=== PATIENT | female | born 1960 | race Caucasian/White ===

== ENCOUNTER 2017-11-26 08:46 | Emergency (ER) | payer BC, SELFPAY ==
[2017-11-26 09:11] VITALS: BP 127/85; PULSE 67; RESP 20; TEMP 37; O2SAT 98; BMI 26.6
--- NOTE | 2017-11-26 09:17 | HMH.EDUTC ---
[facility] [place] Disposition Clinical Impression: Upper respiratory infection Qualifiers: URI type: unspecified URI Qualified Code(s): J06.9 - Acute upper respiratory infection, unspecified Disposition: Home, Self-Care Condition on Discharge: Good Instructions: Sore Throat, Sinus Headache, DI for Sinus Headache, DI for Fever (Symptom) -- Adult Additional Instructions: * Monitor Temp. Tylenol and/or Ibuprofen as needed. ER if fever is no less than 101 despite alternating Tylenol and Ibuprofen * Encourage fluids, water, Gatorade, powerade, pedialyte if infant/toddler/or child * Warm salt water gargles for throat irritation *Warm fluids *Sore throat lozenges *Sleep elevated *humidifier or vaporizer Lots of rest Increase fluids, water, Gatorade, powerade Your throat swab was sent to lab for culture. Those results area typically sent to your primary care physician. Be sure to follow up in 2-3 days if no improvement so they can review those results and treat if necessary If you dont have primary care I recommend you get one, but in the mean time you will have to return to a walk in clinic Follow up IMMEDIATELY for new or worsening of symptoms OR no noticeable improvement over the next 48-72 hours. 911 immediately for any life threatening symptoms such as chest pain or difficulty breathing Prescriptions: Azithromycin [Z-Chaz 250mg Tab] 250 mg PO UD DOSE PK #6 tab predniSONE [Prednisone 20mg Tab] 20 mg PO BID #10 tab Promethazine/Dextromethorphan [Promethazine-Dm Syrup] 5 ml PO Q4H PRN #200 syrup PRN Reason: Cough Referrals: Abebe Siegel MD [Primary Care Provider] - Time of Disposition: 09:26 Medical Decision Making - Medical Records Medical records reviewed: Yes: I reviewed the patient's medical records. Vital Signs: 11/26/17 09:11 Temperature 98.6 F Temperature Source Temporal Artery Scan Pulse Rate [Right Brachial] 67 Respiratory Rate 20 Blood Pressure [Right Arm] 127/85 Blood Pressure Mean [Right Arm] 99 Blood Pressure Source [Right Arm] Automatic Cuff Blood Pressure Position [Right Arm] Sitting 02 Sat by Pulse Oximetry 98 Oxygen Delivery Method Room Air - Rush Inquiry Pt receiving controlled substance: No Rush was queried for this patient: No [facility] [place] HPI - General Stated complaint: Fever, coughing Mode of Arrival: Ambulatory Source of Information: Patient Limitations: No Limitations Description of Symptoms (Recalled from Triage Doc. 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 this week and she wanted to make sure she didn't have flu or strep - Related Data Previous Rx's Medication Instructions Recorded Azithromycin [Z-Chaz 250mg Tab] 250 mg PO UD DOSE PK #6 tab 11/26/17 Promethazine/Dextromethorphan 5 ml PO Q4H PRN #200 syrup 11/26/17 [Promethazine-Dm Syrup] predniSONE [Prednisone 20mg 20 mg PO BID #10 tab 11/26/17 Tab] Allergies Allergy/AdvReac Type Severity Reaction Status Date / Time No Known Allergies Allergy Verified 11/26/17 09:18 - Worker's Comp Is this a Worker's Comp case?: No [facility] History I have reviewed the patient's past medical history: Yes Medical History: Denies:: Cancer, Diabetes Mellitus Type 1, Diabetes Mellitus Type 2, MRSA Laterality Cases: Bilateral: Tonsillectomy Amputation: No Fractures: No - *Social History Smoking Status: Never smoker Alcohol Intake: never - Psychiatric History Expresses thoughts of harming
--- NOTE | 2017-11-26 09:20 | ED_ITS ---
[facility] [place] Dis[place] Clinical Impression: Upper respiratory infection Qualifiers: URI type: unspecified URI Qualified Code(s): J06.9 - Acute upper respiratory infection, unspecified Disposition: Home, Self-Care Condition on Discharge: Good Instructions: Sore Throat, Sinus Headache, DI for Sinus Headache, DI for Fever (Symptom) -- Adult Additional Instructions: * Monitor Temp. Tylenol and/or Ibuprofen as needed. ER if fever is no less than 101 despite alternating Tylenol and Ibuprofen * Encourage fluids, water, Gatorade, powerade, pedialyte if infant/toddler/or child * Warm salt water gargles for throat irritation *Warm fluids *Sore throat lozenges *Sleep elevated *humidifier or vaporizer Lots of rest Increase fluids, water, Gatorade, powerade Your throat swab was sent to lab for culture. Those results area typically sent to your primary care physician. Be sure to follow up in 2-3 days if no improvement so they can review those results and treat if necessary If you don? t have primary care I recommend you get one, but in the mean time you will have to return to a walk in clinic Follow up IMMEDIATELY for new or worsening of symptoms OR no noticeable improvement over the next 48-72 hours. 911 immediately for any life threatening symptoms such as chest pain or difficulty breathing Prescriptions: Azithromycin [Z-Chaz 250mg Tab] 250 mg PO UD DOSE PK #6 tab predniSONE [Prednisone 20mg Tab] 20 mg PO BID #10 tab Promethazine/Dextromethorphan [Promethazine-Dm Syrup] 5 ml PO Q4H PRN #200 syrup PRN Reason: Cough Referrals: Abbee Siegel MD [Primary Care Provider] - Time of Disposition: 09:26 Medical Decision Making - Medical Records Medical records reviewed: Yes: I reviewed the patient's medical records. Vital Signs: 11/26/17 09:11 Temperature 98.6 F Temperature Source Temporal Artery Scan Pulse Rate [Right Brachial] 67 Respiratory Rate 20 Blood Pressure [Right Arm] 127/85 Blood Pressure Mean [Right Arm] 99 Blood Pressure Source [Right Arm] Automatic Cuff Blood Pressure Position [Right Arm] Sitting 02 Sat by Pulse Oximetry 98 Oxygen Delivery Method Room Air - Rush Inquiry Pt receiving controlled substance: No Rush was queried for this patient: No [facility] [place] HPI - General Stated complaint: Fever, coughing Mode of Arrival: Ambulatory Source of Information: Patient Limitations: No Limitations Description of Symptoms (Recalled from Triage Doc. 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
[2017-11-26 09:33] LABS: UTC Influenza A Antigen Negative (Negative); UTC Influenza B Antigen Negative (Negative); UTC Strep Screen (Rapid) Negative (Negative)
[2017-11-26 09:40] VITALS: BP 127/85; PULSE 67; RESP 20; TEMP 37; O2SAT 98
== END 2017-11-26 09:42 | disposition home or self-care (01) ==
PROVIDERS: Emergency Provider Nurse Practitioner; Family Provider Family Medicine; PCP Family Medicine
DX: J06.9 Acute upper respiratory infection, unspecified (principal)
CPT/HCPCS: 87804; 87880; 99201

== ENCOUNTER → 2017-12-11 17:12 | Outpatient (CLI) | payer BC, SELFPAY ==
--- NOTE | 2017-12-11 17:24 | MM_ITS ---
MM Dig screening mamm BI w/CAD CAD Screening COMPARISON: Digital mammograms 11/17/2016 and 11/16/2015 INDICATION: There is no personal or family history of breast cancer TECHNIQUE: Standard CC and MLO images were obtained. R2 CAD reviewed. FINDINGS: The breasts are composed primarily of fat with minimal scattered fibroglandular densities in the central portions of each breast. There is a stable small asymmetric density central portion right breast. There is no suspicious lesion and no suspicious microcalcifications. IMPRESSION: Fibrofatty parenchyma with no suspicious lesion seen BI-RADS Category: 2 Benign Finding(s) RECOMMENDED FOLLOW-UP: 1YR - 1 YEAR FOLLOW-UP (A letter has been sent to the patient regarding results of the study.)
== END ==
PROVIDERS: Family Provider Family Medicine; PCP Family Medicine; Visit Provider Obstetrics & Gynecology Gynecology
DX: Z12.31 Encounter for screening mammogram for malignant neoplasm of breast (principal)
CPT/HCPCS: 77067

== ENCOUNTER 2018-04-16 09:45 | Outpatient (CLI) | payer BC, SELFPAY ==
[2018-04-16 09:54] VITALS: BMI 28.6
[2018-04-16 10:29] LABS: Albumin Level 3.9 gm/dL (3.4-5.0); Calcium 8.6 mg/dL (8.5-10.1); Creatinine Clearance Estimated 110 mL/min (0-300); Creatinine,Serum 0.67 mg/dL (0.55-1.02); Estimated Glomerular Filt Rate 90 ml/min (>60); GFR (African American) 109 ML/MIN (>60)
[2018-04-16 10:41] VITALS: BP 101/57; PULSE 52; RESP 18; TEMP 36.6; O2SAT 97
[2018-04-16 11:10] VITALS: BP 109/54; PULSE 58; RESP 18; O2SAT 97
== END 2018-04-16 11:10 | disposition home or self-care (01) ==
LOC: INF 09:50
PROVIDERS: Family Provider Family Medicine; PCP Family Medicine; Visit Provider Family Medicine
DX: M81.0 Age-related osteoporosis without current pathological fracture (principal)
CPT/HCPCS: 82040; 82310; 82565; 96365; J3489

== ENCOUNTER → 2018-06-28 14:04 | Outpatient (CLI) | payer BC, SELFPAY ==
--- NOTE | 2018-06-28 14:09 | XR_ITS ---
XR foot RT min 3V HISTORY: ITS.REASON: RT FOOT PAIN ORDERING PHYSICIAN: Abebe Siegel MD PATIENT AGE: 58 years COMPARISON: 09/26/2016 FINDINGS: Osteoarthritic changes are present at the first metatarsophalangeal joint with prominent bony spurring along the lateral dorsal aspect of the distal aspect of the fifth metatarsal. There is a healed fracture of the proximal phalanx of the second toe. Mild osteoarthritic changes are present at the first metatarsal tarsal junction. There is a nondisplaced oblique fracture involving the proximal phalanx of the third toe. IMPRESSION: 1. Nondisplaced oblique fracture proximal phalanx third toe. 2. Osteoarthritis
== END ==
PROVIDERS: PCP Family Medicine; Visit Provider Family Medicine
DX: M79.671 Pain in right foot (principal)
CPT/HCPCS: 73630

== ENCOUNTER → 2018-12-19 15:53 | Outpatient (CLI) | payer BC, SELFPAY ==
--- NOTE | 2018-12-19 16:00 | MM_ITS ---
MM Dig screening mamm BI w/CAD CAD Screening COMPARISON: Digital mammograms with CAD 11/17/2016 and additional views left breast 11/30/2016 and digital mammograms with CAD 12/11/2017 INDICATION: There is no personal or family history of breast cancer TECHNIQUE: Standard CC and MLO images were obtained. R2 CAD reviewed. FINDINGS: Diffuse fibroglandular densities are seen throughout both breast. There are 2 small nodular densities right breast. There are both likely stable however one in the nodular densities has shown a possible slight increase in size from the previous exams recommend the patient return for spot compression views and ultrasound for additional evaluation. There are no suspicious microcalcifications.. IMPRESSION: Fibrofatty parenchyma with possible change in asymmetric density right breast BI-RADS Category: 0 Need Additional Imaging Evaluation RECOMMENDED FOLLOW-UP: IMM - IMMEDIATE FOLLOW-UP RECOMMENDED (A letter has been sent to the patient regarding results of the study.)
== END ==
PROVIDERS: PCP Family Medicine; Visit Provider Obstetrics & Gynecology Gynecology
DX: Z12.31 Encounter for screening mammogram for malignant neoplasm of breast (principal)
CPT/HCPCS: 77067

== ENCOUNTER → 2018-12-27 14:27 | Outpatient (CLI) | payer BC, SELFPAY ==
--- NOTE | 2018-12-27 14:31 | MM_ITS ---
MM Dig mamm DX unilat RT CAD, US breast RT complete INDICATION: Follow-up abnormal mammogram ORDERING PHYSICIAN: Jayesh Thomas PATIENT AGE: 58 years COMPARISON: 12/19/2018, 12/11/2017, 05/23/2011 TECHNIQUE: Problem solving views of the right breast along with right breast ultrasound FINDINGS: There is average fibroglandular tissue. 2 nodular densities are once again noted involving the right breast one nodule just lateral to the retroareolar region at 9 mm and another central to the retroareolar region 6 cm deep to the nipple also at 9 mm.. There was a question that one of these nodules may be larger compared to the previous study. Both nodules were present dating back to an older mammogram of 05/23/2011. Spot compression view show the nodule to be well-circumscribed with no spiculation. Right breast ultrasound: A flat like cyst is noted at 6:00 measuring 5 mm. A somewhat isoechoic nodule is present behind the nipple at 8 mm possibly related to a small lymph node. No suspicious nodules are evident. IMPRESSION: No convincing evidence of malignancy. Probably Benign-appearing right breast nodules are noted with no good sonographic correlate. Due to the questionable increase in size would recommend 6 month mammographic and sonographic follow-up of the right breast BI-RADS Category: 3 Probably Benign Finding Short Term Follow-up RECOMMENDED FOLLOW-UP: 6M - 6 MONTH FOLLOW-UP (A letter has been sent to the patient regarding results of the study.)
== END ==
PROVIDERS: PCP Family Medicine; Visit Provider Obstetrics & Gynecology Gynecology
DX: R92.8 Other abnormal and inconclusive findings on diagnostic imaging of breast (principal)
CPT/HCPCS: 76641; 77065

== ENCOUNTER → 2019-01-05 09:45 | Outpatient (CLI) | payer BC, SELFPAY ==
[2019-01-05 09:52] LABS: Microscopic, Urine URINE MICROSCOPIC (MICROSCOPIC)
--- NOTE | 2019-01-05 10:11 | XR_ITS ---
. XR foot LT min 3V Ordering Physician: Abebe Siegel MD Patient Age: 58 years: Female HISTORY pain third digit. There are degenerative 8 weeks ago.: ...: LEFT FOOT PAIN TECHNIQUE: 3 views left foot COMPARISON :Left foot October 2013 No recent left foot studies for comparison Right foot May 2018 FINDINGS . Fracture proximal phalanx third toe. . There appears to be healing bone developing about this fracture most evident medial. No prior films for comparison. Fracture line passes in oblique longitudinal fracture through the proximal phalanx beginning at the proximal most shaft & exiting the lateral margin of head and neck of proximal phalanx..Fracture passes to the lateral margin head of proximal phalanx and does not involve the PIP joint. It does not involve the base of the occipital phalanx nor third MTP joint. Nearly 3 mm mm wide distraction of the fracture line where it exits distally at lateral margin head of proximal phalanx.. Corresponding medial displacement of the distal fracture fragment slight medial tilt distal fracture fragment as well.. Cannot exclude reinjury without prior studies Advanced degenerative arthritic changes at first MTP joint. With [id number] hallux valgus associated. There may be some scant arthritic changes at the second and third tarsometatarsal metatarsal joints. Equivocal. Tarsals otherwise unremarkable. IMPRESSION 1. Fracture proximal phalanx third toe. Healing bone seen about this fracture- but there is distraction & moderate displacement of the distal fracture fragment as described above.-Prior films be required to determine if there is been interval change or recent injury 2. Advanced arthritic changes first MTP joint. Mild hallux valgus.
[2019-01-05 10:23] LABS: Appearance,Urine CLEAR (Clear); Bilirubin,Urine Negative (Negative); Blood, Urine Negative (Negative); Color,Urine YELLOW (Yellow); Glucose,Urine (UA) Negative (Negative); Ketones,Urine Negative (Negative); Leukocyte Esterase,Urine Negative (Negative); Nitrate,Urine Negative (Negative); Protein,Urine Negative (Negative); Specific Gravity, Urine <= 1.005 (1.005-1.030); Urobilinogen,Urine 0.2 EU/dl (0.2)
[2019-01-05 10:36] LABS: Bacteria,Urine Trace /lpf; Squamous Epithelial Cell,Urine Occasional #/hpf (0-5)
== END ==
PROVIDERS: PCP Family Medicine; Visit Provider Family Medicine
DX: M79.672 Pain in left foot (principal); R30.0 Dysuria
CPT/HCPCS: 73630; 81001; 87086

== ENCOUNTER → 2019-02-27 07:09 | Outpatient (CLI) | payer BC, SELFPAY ==
[2019-02-27 09:23] LABS: Alanine Aminotransferase 27 U/L (12-78); Albumin/Globulin Ratio 1.3 (1.1-1.8); Alkaline Phosphatase 55 U/L (46-116); Anion Gap 11.5 mEq/L (5-15); Aspartate Amino Transferase 8 U/L (15-37); Bilirubin,Total 0.3 mg/dL (0.2-1.0); Blood Urea Nitrogen 18 mg/dL (7-18); Calcium 8.6 mg/dL (8.5-10.1); Carbon Dioxide 29 mmol/L (21.0-32.0); Chloride 107 mmol/L (98-107); Chol/HDL Ratio 3.7 (1-3.5); Cholesterol 171 mg/dL (140-200); Creatinine,Serum 0.67 mg/dL (0.55-1.02); Estimated Glomerular Filt Rate 89 ml/min (>60); Free T4 (Free Thyroxine) 0.63 ng/dl (0.76-1.46); GFR (African American) 108 ML/MIN (>60); Glucose 108 mg/dL (74-106); HDL Cholesterol 46 mg/dL (29-89); LDL Cholesterol 112 mg/dL (0-130); Potassium 4.5 mmoL/L (3.5-5.1); Sodium 143 mmol/L (136-145); Triglycerides 65 mg/dL (30-200); Uric Acid 3.8 mg/dL (2.6-7.2); VLDL Cholesterol 13 mg/dL (0-40)
[2019-02-27 12:28] LABS: Creatinine,Urine Random 164 mg/dL (20-320)
[2019-03-01 08:10] LABS: Microalbumin, Urine 9.1 ug/mL (Not Estab.)
== END ==
PROVIDERS: Visit Provider Family Medicine
DX: I10 Essential (primary) hypertension (principal); E03.9 Hypothyroidism, unspecified
CPT/HCPCS: 36415; 80053; 80061; 82043; 82570; 84439; 84443; 84550

== ENCOUNTER → 2019-04-17 15:08 | Outpatient (POV) | payer BC, SELFPAY | DX: Z00.00 Encounter for general adult medical examination without abnormal findings (principal) ==

== ENCOUNTER 2019-04-24 09:12 | Outpatient (CLI) | payer BC, SELFPAY ==
[2019-04-24 09:14] VITALS: BMI 27.1
[2019-04-24 09:43] LABS: Albumin Level 3.7 gm/dL (3.4-5.0); Calcium 8.1 mg/dL (8.5-10.1); Creatinine Clearance Estimated 71 mL/min (50-200); Creatinine,Serum 0.75 mg/dL (0.55-1.02); Estimated Glomerular Filt Rate 79 ml/min (>60); GFR (African American) 95 ML/MIN (>60)
[2019-04-24 10:05] VITALS: BP 103/61; PULSE 51; RESP 18
[2019-04-24 10:20] VITALS: BP 109/70; PULSE 58; RESP 18
== END 2019-04-24 10:25 | disposition home or self-care (01) ==
LOC: INF 09:12
PROVIDERS: Visit Provider Family Medicine
DX: M81.0 Age-related osteoporosis without current pathological fracture (principal)
CPT/HCPCS: 82040; 82310; 82565; 96374; J3489

== ENCOUNTER → 2019-06-14 14:57 | Outpatient (CLI) | payer BC, SELFPAY ==
--- NOTE | 2019-06-14 15:13 | MM_ITS ---
PROCEDURE: MM DIG MAMM DX UNILAT RT CAD CLINICAL INDICATION: ABNORMAL MAMMOGRAM COMPARISON: DMSB DIG MAMM-SCREEN ROSALINDA W/CAD from 11/17/2016 [id number] DIG MAMM-DX UNI A/VWS-LT W/CAD from 11/30/2016 [facility] MM Dig screening mamm BI w/CAD from 12/11/2017 [facility] MM Dig screening mamm BI w/CAD from 12/19/2018 DXRT MM Dig mamm DX unilat RT CAD from 12/27/2018 TECHNIQUE: Standard CC and MLO images were obtained. R2 CAD reviewed. FINDINGS: This is a six-month follow-up or continue evaluation of nodular lesions in the central portion of the breast. The nodules previously described appear to be stable with no significant change in size. There is no new or suspicious lesions the breast. There is faint arterial calcification as noted previously. There are no suspicious microcalcifications. IMPRESSION: Stable nodular lesion central portion of the breast with no suspicious lesion seen and recommended patient return to yearly screening mammography BI-RAD Category: 2 Benign Finding(s) FOLLOW-UP: 6M 6 Month Follow-up to return to normal yearly screening schedule (A letter has been sent to the patient regarding results of the study.) Dictated by: Dr. Cheko Hoyos MD 06/24/2019 10:27 Signed by: <Electronically signed by Dr. Cheko Hoyos MD in [place]> 06/24/2019 10:27
--- NOTE | 2019-06-14 15:14 | US_ITS ---
PROCEDURE: US BREAST RT COMPLETE CLINICAL INDICATION: ABNORMAL MAMM COMPARISON: BREASTRT US breast RT complete from 12/27/2018 FINDINGS: Again noted is a small oval hypoechoic lesion 6 o'clock position near the nipple unchanged in size and overall appearance from the previous exam and likely a small cyst with some minimal internal debris. There is a 2nd oval hypoechoic lesion 6 o'clock position behind the nipple unchanged in size and overall appearance from the previous exam and probably a small complex cyst. There are couple of normal-appearing nodes in the axilla. IMPRESSION: Stable tiny benign appearing cystic lesions, no suspicious lesion identified and recommend the patient continue with yearly screening mammography Dictated by: Dr. Cheko Hoyos MD 07/05/2019 13:[address] Cheko Hoyos MD in [facility] 07/05/2019 13:42
== END ==
PROVIDERS: PCP Obstetrics & Gynecology Gynecology; Visit Provider Obstetrics & Gynecology Gynecology
DX: R92.8 Other abnormal and inconclusive findings on diagnostic imaging of breast (principal)
CPT/HCPCS: 76641; 77065

== ENCOUNTER → 2019-07-31 15:18 | Outpatient (CLI) | payer SELFPAY ==
--- NOTE | 2019-07-31 15:33 | CT_ITS ---
PROCEDURE: CT HEART W CALCIUM SCORE Patient Age:59Y CLINICAL HISTORY: SCREENING family history of heart disease. Hypertension . FINDINGS: Total calcium score = 0 No identifiable plaque very low cardiovascular disease CvD risk No pericardial effusions or other significant observations on these limited views. Perhaps some mild chronic pulmonary changes suggested on limited views of lungs. Ascending aorta is normal caliber at 3.5 cm diameter. IMPRESSION: Total calcium score =0 No identifiable plaque very low cardiovascular disease CvD risk COMPARISON: No exams were available for comparison TECHNIQUE: TECHNIQUE Limited axial images obtained through the heart for the purposes of calcium scoring . All CT scans at the facility use one or more dose reduction, viz: automated exposure control, ma/kV adjustment per patient size (including targeted exams where dose is matched to indication, i.e. head), or iterative reconstruction technique IMPRESSION: Total calcium score =0 No identifiable plaque very low cardiovascular disease CvD risk Dictated by: James Bruce MD 08/03/2019 11:32 Electronically signed by James Bruce MD in [place] 08/03/2019 12:09
== END ==
PROVIDERS: PCP Family Medicine; Visit Provider Internal Medicine Cardiovascular Disease
DX: Z13.6 Encounter for screening for cardiovascular disorders (principal)
CPT/HCPCS: 75571

== ENCOUNTER → 2019-12-25 15:49 | Outpatient (CLI) | payer BC, SELFPAY ==
--- NOTE | 2019-12-25 15:53 | MM_ITS ---
PROCEDURE: MM DIG SCREENING MAMM BI W/CAD DIGITAL BREAST TOMOGRAPHY INCLUDED Patient Age:59Y CLINICAL INDICATION: ROUTINE SCREENING No hormones. No new complaints. Noncontributory family history COMPARISON: DIGMAMMS MAMMOGRAM SCREEN-SENIOR SQL DBA N/C from 07/29/2009 [facility] DIGITAL MAMM-SCREEN BILATERAL from 05/23/2011 [facility] DIGITAL MAMM-SCREEN BILATERAL from 06/21/2012 [facility] DIG MAMM-SCREEN ROSALINDA from 09/03/2013 [facility] DIG MAMM-SCREEN ROSALINDA from 11/16/2015 [facility] DIG MAMM-SCREEN ROSALINDA W/CAD from 11/17/2016 DMDXUAVL DIG MAMM-DX UNI A/VWS-LT W/CAD from 11/30/2016 BL US BREAST-LT COMPLETE W/AXILLA from 11/30/2016 [facility] MM Dig screening mamm BI w/CAD from 12/11/2017 [facility] MM Dig screening mamm BI w/CAD from 12/19/2018 BREASTRT US breast RT complete from 12/27/2018 DXRT MM Dig mamm DX unilat RT CAD from 12/27/2018 US BREAST RT COMPLETE from 06/14/2019 MM DIG MAMM DX UNILAT RT CAD from 06/14/2019 TECHNIQUE: Standard CC and MLO images were obtained. R2 CAD reviewed. Digital breast tomography included FINDINGS: Scattered fibroglandular elements. Prior studies are very helpful supporting stable asymmetry Right breast. 2 longstanding ovoid nodular densities are again observed at the right-These both appear stable since mammogram from 2011, 2010 and even 2008 film screen. The more prominent well-defined nodule at the retro areolar region measures up to 1 cm and unchanged since multiple prior studies The 2nd area of density at the inferior breast is less well defined but appear stable previous mammograms dating back to 2012, 2016. Also this area may correlate a small benign cyst noted 2019 ultrasound. On tomosynthesis it measures up to 8 mm a the the x nearly 6 mm. Given the longstanding stability I believe both these areas can be followed safely. Follow-up right mammogram 1 year on right and left recommended and should be encouraged Left breast. Stable mild asymmetry similar appearance dates back to 2015 and even 2011 studies no new areas of significant concern. IMPRESSION: No significant new findings Longstanding stable asymmetric densities bilaterally. Bilateral follow-up 1 year recommended- and should be emphasized/encouraged BI-RAD Category: 2 Benign Finding(s) FOLLOW-UP: 1YR 1 Year Follow-up (A letter has been sent to the patient regarding results of the study.) Dictated by: James Bruce MD 01/06/2020 11:11 Electronically signed by James Bruce MD in [place] 01/06/2020 11:11
== END ==
PROVIDERS: PCP Family Medicine; Visit Provider Obstetrics & Gynecology Gynecology
DX: Z12.31 Encounter for screening mammogram for malignant neoplasm of breast (principal)
CPT/HCPCS: 77063; 77067

== ENCOUNTER → 2020-03-27 08:57 | Outpatient (CLI) | payer BC, SELFPAY ==
[2020-03-27 11:04] LABS: Coronavirus 19 IgG Antibody Negative (Negative); Coronavirus 19 IgM Antibody Negative (Negative)
== END ==
PROVIDERS: Visit Provider Internal Medicine Gastroenterology
DX: Z01.818 Encounter for other preprocedural examination (principal)
CPT/HCPCS: 36415; 86328

== ENCOUNTER 2020-03-30 08:58 | Day surgery (SDC) | payer BC, SELFPAY ==
[2020-03-27 14:32] VITALS: BMI 26.6
[2020-03-30 09:13] VITALS: BP 122/56; PULSE 56; RESP 18; TEMP 37.1; O2SAT 95
[2020-03-30 09:36] VITALS: O2SAT 95
--- NOTE | 2020-03-30 09:36 | P.PCN_ITS ---
[facility] Procedure Note Procedure Note:: Colonoscopy Procedure Report: Colonoscopy with cold snare polypectomy Endoscopist: Azar Alberto II, MD Referring physician: Abebe Siegel MD/Jayesh Thomas MD Date of Procedure: March 30, 2020 Equipment: Olympus 180 variable stiffness pediatric colonoscope Sedation: MAC sedation Indication: Mrs. Wiseman is a 60-year-old female who is here for follow-up high risk screening/surveillance colonoscopy. Her father had colon cancer in his early 60s. The patient has had normal colonoscopies in 2000, April 2009 and January 2015. She reports no abdominal pain, weight loss, change in her bowel habits or rectal bleeding. The patient does take Konsyl bulk fiber supplementation on a maintenance basis. Procedure: Prior to the procedure, a history and physical exam was performed, and patient's medications and allergies were reviewed. The risks, benefits and alternatives of the sedation and procedure were discussed with the patient. All questions were answered and informed consent was obtained. The patient was brought to the procedure room. Patient identification and proposed procedure were verified by the physician and the nurse. The patient was placed in a left lateral decubitus position and the scope was passed under direct vision. Throughout the procedure, the patient's blood pressure, pulse, and oxygen saturations were monitored continuously. The colonoscopy was accomplished without difficulty. The patient tolerated the procedure well. Findings: On digital rectal examination there was normal rectal tone. There were no external hemorrhoids. The colonoscope was introduced through the anal canal to the rectum and advanced to the cecum. The ileocecal valve and appendiceal orifice were identified. The scope was advanced a short distance into the ileum which appeared grossly normal. The scope was then withdrawn into the colon. There were 2 diminutive polyps in the cecum that were 2 and 3 mm. Additionally, there were 2 diminutive polyps in the descending that were 3 mm x 2. All 4 of these polyps were removed via cold snare polypectomy. The remainder of the ascending, transverse, descending, sigmoid and rectum were grossly normal. Upon retroflexion within the rectum there were grade 1 internal hemorrhoids.The preparation was excellent throughout with [place] Preparation Score of 9. The cecal time was 12 minutes. Impression: 1. Diminutive colonic polyps x4 2. Grade 1 internal hemorrhoids Plan: I will follow up the polyp pathology and recommend repeat colonoscopy again in 3-5 years based upon the polyp histology and patient's family history. I would encourage continuation of bulk fiber supplementation (Konsyl) on a long- term daily maintenance basis.
[2020-03-30 10:05] VITALS: BP 113/91; PULSE 59; RESP 18; TEMP 36.4; O2SAT 93
--- NOTE | 2020-03-30 10:13 | HMH.ANESCL ---
[facility] Anesthesia Checklist - Patient Identification Patient Identification: Arm Band, Verbal (Name & ) - Structural Data Admitted From: Home Planned Operative Procedure/s: Colonoscopy Consent for Planned Operative Procedure(s) Verified: Yes Verified Documents: Surgical Consent, History and Physical - NPO Status Verified Time NPO: 00:00 - Chart Verification Results Verified: None (serology) - Additional verifications Anesthesia Reactions: No - Airway Assessment C-Spine Mobility Assessed: Yes TMJ Mobility Assessed: Yes Dentition: Good Dentition - Neurological Assessment Level of Consciousness: Awake, Alert, Appropriate, Follows Commands Hx Seizures: No Numbness or tingling in extremities: No - Anesthesia Plan Anesthesia Risk discussed: Yes Anesthesia Plan: Verified ASA Class: II Anesthesia Type: MAC [facility] History I have reviewed the patient's past medical history: Yes Medical History: Reports:: Anxiety, Hypertension, Valvular Heart Disease (MVP) Denies:: Cancer, Diabetes Mellitus Type 1, Diabetes Mellitus Type 2, Internal Pacemaker, MRSA, Seizures *Have you ever received a pneumonia vaccine?: No *Have you received a flu vaccine this season?: Yes Other Medical History: Reports: Hypothyroidism Anesthesia experience/problems:: None Laterality Cases: Left: Other, Bilateral: Tonsillectomy Other Surgeries: No: Pacemaker Amputation: No Fractures: No - *Social History Educational Level: Completed Graduate School Smoking Status: Never smoker Alcohol Intake: current Alcohol Intake Frequency:: holidays/special occasions only Substance Use Type: denies use *Occupational Status:: retired Housing: house Household Members: spouse *Travel in the last 8 weeks: None Family Hx:: No significant family history
[2020-03-30 10:15] VITALS: BP 99/53; PULSE 59; RESP 18; O2SAT 98
[2020-03-30 10:42] VITALS: BP 132/57; PULSE 56; RESP 18; O2SAT 99
== END 2020-03-30 10:45 | disposition home or self-care (01) ==
LOC: OUTP 08:59
PROVIDERS: PCP Family Medicine; Visit Provider Internal Medicine Gastroenterology
PROC: 0DJD8ZZ Inspection of Lower Intestinal Tract, Via Natural or Artificial Opening Endoscopic (ICD-10-PCS; CPT 45378; principal; 2020-03-30 10:00)
DX: Z12.11 Encounter for screening for malignant neoplasm of colon (principal); Z80.0 Family history of malignant neoplasm of digestive organs; K63.5 Polyp of colon; K64.0 First degree hemorrhoids; I10 Essential (primary) hypertension; I34.1 Nonrheumatic mitral (valve) prolapse; Z79.899 Other long term (current) drug therapy
CPT/HCPCS: 45385

== ENCOUNTER 2020-04-27 08:36 | Outpatient (CLI) | payer BC, SELFPAY ==
[2020-04-27 08:38] VITALS: BMI 27.4
[2020-04-27 09:09] LABS: Albumin Level 4.3 g/dl (3.5-5.0)
[2020-04-27 09:12] LABS: Calcium 8.9 mg/dl (8.4-10.2); Creatinine Clearance Estimated 71 mL/min (50-200); Estimated Glomerular Filt Rate 85 ml/min (>60); GFR (African American) 103 ML/MIN (>60)
[2020-04-27 09:17] VITALS: BP 108/60; PULSE 50; RESP 18; O2SAT 97
[2020-04-27 09:35] VITALS: BP 109/59; PULSE 53; RESP 18
== END 2020-04-27 09:35 | disposition home or self-care (01) ==
LOC: INF 08:36
PROVIDERS: Visit Provider Family Medicine
DX: M81.0 Age-related osteoporosis without current pathological fracture (principal)
CPT/HCPCS: 82040; 82310; 82565; 96374; J3489

== ENCOUNTER → 2020-05-13 15:09 | Outpatient (POV) | payer BC, SELFPAY | PROVIDERS: PCP Family Medicine | DX: Z00.00 Encounter for general adult medical examination without abnormal findings (principal) ==

== ENCOUNTER → 2020-05-15 11:13 | Outpatient (CLI) | payer BC, SELFPAY ==
[2020-05-15 12:06] LABS: Glucose,Fasting 100 mg/dl (74-100)
[2020-05-15 13:54] LABS: Glucose 1 Hour 127 mg/dL (74-100)
[2020-05-15 14:03] LABS: Glucose 2 Hour 89 mg/dL (74-100)
== END ==
PROVIDERS: Visit Provider Family Medicine
DX: R73.01 Impaired fasting glucose (principal)
CPT/HCPCS: 36415; 82951

== ENCOUNTER → 2020-10-19 09:43 | Outpatient (CLI) | payer BC, SELFPAY ==
--- NOTE | 2020-10-19 09:47 | XR_ITS ---
PROCEDURE: XR FOOT WT BEARING RT 3V CLINICAL INDICATION: hammertoes and bunions Pain COMPARISON: CR FTL3 FOOT-LT-3 VIEWS from 11/20/2013 CR FTR3 FOOT-RT-3 VIEWS from 09/26/2016 CR [id number] XR foot RT min 3V from 06/28/2018 CR [id number] XR foot LT min 3V from 01/05/2019 FINDINGS: There is moderate to severe osteoarthritis at the 1st MTP joint with mild metatarsus varus. No fracture or dislocation. There is osteoarthritic change at the talonavicular navicular cuneiform joint. Mild osteoarthritis of the calcaneocuboid joint. Overall no significant change. Other findings:None. IMPRESSION: Osteoarthritic changes as described above Dictated by: Jeison Rubio MD 10/19/2020 10:09 Jeison Rubio MD in [place] 10/19/2020 10:09
--- NOTE | 2020-10-19 09:47 | XR_ITS ---
PROCEDURE: XR FOOT WT BEARING LT 3V CLINICAL INDICATION: hammertoes and bunions Pain COMPARISON: CR FTL3 FOOT-LT-3 VIEWS from 11/20/2013 CR FTR3 FOOT-RT-3 VIEWS from 09/26/2016 CR [id number] XR foot RT min 3V from 06/28/2018 CR [id number] XR foot LT min 3V from 01/05/2019 FINDINGS: There are moderate to severe osteoarthritic changes at the 1st MTP with bony hypertrophy. There is an old healed fracture involving the proximal phalanx of the 3rd toe. There is mild metatarsus varus. Borderline pes planus. No fracture or dislocation. No lytic or blastic change. Other findings:None. IMPRESSION: Osteoarthritis 1st MTP joint with mild metatarsus varus an old fracture of the proximal phalanx of the 3rd toe with pes planus overall not significantly changed. Dictated by: Jeison Rubio MD 10/19/2020 10:08 Jeison Rubio MD in [place] 10/19/2020 10:08
== END ==
PROVIDERS: PCP Family Medicine; Visit Provider Nurse Practitioner
DX: M20.11 Hallux valgus (acquired), right foot (principal); M20.41 Other hammer toe(s) (acquired), right foot; M20.42 Other hammer toe(s) (acquired), left foot
CPT/HCPCS: 73630

== ENCOUNTER → 2021-01-18 15:17 | Outpatient (CLI) | payer BC, SELFPAY ==
--- NOTE | 2021-01-18 15:20 | MM_ITS ---
PROCEDURE: MM DIG SCREENING MAMM BI W/CAD Digital Breast Tomosynthesis Included CLINICAL INDICATION: SCREENING There is no personal or family history of breast cancer. COMPARISON: MG DXRT MM Dig mamm DX unilat RT CAD from 12/27/2018 MG MM DIG MAMM DX UNILAT RT CAD from 06/14/2019 MG MM DIG SCREENING MAMM BI W/CAD from 12/25/2019 TECHNIQUE: Standard CC and MLO images and 3D Tomosynthesis was obtained. R2 CAD reviewed. FINDINGS: Scattered fibroglandular densities are seen in both breasts. There are stable benign-appearing nodular densities in each breast best appreciated on anmol images. There is minimal arterial calcification right breast. There is no new or suspicious lesion in either breast and no suspicious microcalcifications. IMPRESSION: Stable exam with no suspicious lesions seen BI-RAD Category: 2 Benign Finding(s) FOLLOW-UP: 1YR 1 Year Follow-up (A letter has been sent to the patient regarding results of the study.) Dictated by: Dr. Cheko Hoyos MD 01/19/2021 11:35 Dr. Cheko Hoyos MD in [place] 01/19/2021 11:35
--- NOTE | 2021-01-18 15:21 | XR_ITS ---
PROCEDURE: XR DEXA AXIAL SKELETON CLINICAL HISTORY: POST MENOPAUSAL COMPARISON: CR,DX BONE3 BONE DENSITOMETRY(HIP:LT SPINE from 11/17/2016 FINDINGS: The right hip BMD is 0.646 with a T-score of -1.8. The left hip BMD is 0.711 with a T-score of -1.2. The lumbar spine BMD is 0.966 with a T-score of -0.7. IMPRESSION: This patient is considered osteopenic according to the World Health Organization criteria. Bone density is between 10 and 25 percent below young normal. Fracture risk is moderate. Treatment is advised. Based on these results a follow-up exam is recommended in 2 year. Dictated by: Jeison Rubio MD 01/18/2021 22:02 Jeison Rubio MD in [place] 01/19/2021 10:20
== END ==
PROVIDERS: PCP Family Medicine; Visit Provider Obstetrics & Gynecology Gynecology
DX: Z12.31 Encounter for screening mammogram for malignant neoplasm of breast (principal); M85.89 Other specified disorders of bone density and structure, multiple sites
CPT/HCPCS: 77063; 77067; 77080

== ENCOUNTER 2021-05-11 09:37 | Outpatient (CLI) | payer BC, SELFPAY ==
[2021-05-11 09:39] VITALS: BMI 29.0
[2021-05-11 10:04] LABS: Albumin Level 4.4 g/dl (3.5-5.0)
[2021-05-11 10:06] LABS: Creatinine Clearance Estimated 74 mL/min (50-200); Estimated Glomerular Filt Rate 72 ml/min (>60); GFR (African American) 88 ML/MIN (>60)
[2021-05-11 10:07] LABS: Calcium 9.3 mg/dl (8.4-10.2)
[2021-05-11 10:30] VITALS: BP 120/58; PULSE 52; RESP 18; O2SAT 97
[2021-05-11 10:50] VITALS: BP 124/76; PULSE 54; RESP 18
== END 2021-05-11 10:50 | disposition home or self-care (01) ==
LOC: INF 09:37
PROVIDERS: Visit Provider Family Medicine
DX: M81.0 Age-related osteoporosis without current pathological fracture (principal)
CPT/HCPCS: 82040; 82310; 82565; 96374

== ENCOUNTER → 2021-05-19 14:20 | Outpatient (POV) | payer BC, SELFPAY | DX: Z00.00 Encounter for general adult medical examination without abnormal findings (principal) ==

== ENCOUNTER 2021-10-16 09:56 | Emergency (ER) | payer BC, SELFPAY ==
[2021-10-16 10:30] VITALS: BP 0/0; PULSE 0; RESP 0; TEMP -17.7; TEMP 0
== END 2021-10-16 10:31 | disposition left against medical advice (07) ==
LOC: UTC 09:59
PROVIDERS: Emergency Provider Nurse Practitioner Family; PCP Family Medicine
DX: Z53.21 Procedure and treatment not carried out due to patient leaving prior to being seen by health care provider (principal)

== ENCOUNTER → 2021-10-16 12:28 | Outpatient (CLI) | payer BC, SELFPAY ==
--- NOTE | 2021-10-16 12:38 | XR_ITS ---
PROCEDURE INFORMATION: Exam: XR Left Wrist Exam date and time: 10/16/2021 12:38 PM Age: 61 years old Clinical indication: Injury or trauma; Work related; Sprain or strain; Injury details: Sprain of left wrist S/P fall TECHNIQUE: Imaging protocol: XR Left wrist. Views: 3 or more views. COMPARISON: No relevant prior studies available. FINDINGS: Bones/joints: There is no evidence of acute fracture.There is no evidence of malalignment or dislocation. Soft tissues: Normal. IMPRESSION: There is no evidence of acute fracture.There is no evidence of malalignment or dislocation.
== END ==
PROVIDERS: PCP Family Medicine; Visit Provider Family Medicine
DX: S63.502A Unspecified sprain of left wrist, initial encounter (principal)
CPT/HCPCS: 73110

== ENCOUNTER 2022-05-17 13:02 | Outpatient (CLI) | payer BC, SELFPAY ==
[2022-05-17 13:06] VITALS: BMI 29.3
[2022-05-17 13:41] LABS: Albumin Level 4.2 g/dl (3.5-5.0)
[2022-05-17 13:43] LABS: Creatinine Clearance Estimated 74 mL/min (50-200); Estimated Glomerular Filt Rate 84 ml/min (>60); GFR (African American) 102 ML/MIN (>60)
[2022-05-17 13:44] LABS: Calcium 8.7 mg/dl (8.4-10.2)
[2022-05-17 14:05] VITALS: BP 112/58; PULSE 55; RESP 18; TEMP 36.4; O2SAT 99
[2022-05-17 14:20] VITALS: BP 123/60; PULSE 56; RESP 18; O2SAT 99
== END 2022-05-17 14:20 | disposition home or self-care (01) ==
LOC: INF 13:03
PROVIDERS: PCP Family Medicine; Visit Provider Family Medicine
DX: M81.0 Age-related osteoporosis without current pathological fracture (principal)
CPT/HCPCS: 82040; 82310; 82565; 96374; J3489

== ENCOUNTER → 2022-09-17 13:20 | Outpatient (CLI) | payer BC, SELFPAY ==
--- NOTE | 2022-09-17 13:57 | XR_ITS ---
PROCEDURE INFORMATION: Exam: XR Lumbosacral Spine Exam date and time: 09/17/2022 1:58 PM Age: 62 years old Clinical indication: Low back pain; Patient HX: Lower back pain TECHNIQUE: Imaging protocol: Radiologic exam of the lumbosacral spine. Views: 2 or 3 views. COMPARISON: No relevant prior studies available. FINDINGS: Bones/joints: Lumbar curvature and alignment is unremarkable. There are no compression fractures or spondylolisthesis. Mild degenerative changes lower lumbar spine with some disc space narrowing and facet arthrosis. 2.5 cm oblong shaped sclerotic bone lesion right sacral ala probably representing large benign bone island. Soft tissues: Unremarkable. IMPRESSION: Mild degenerative changes lower lumbar spine. No acute abnormalities. Probable large benign bone island right sacral ala.
== END ==
PROVIDERS: PCP Family Medicine; Referring Provider Family Medicine; Visit Provider Family Medicine
DX: M54.50 Low back pain, unspecified (principal)
CPT/HCPCS: 72100

== ENCOUNTER → 2022-09-28 17:01 | Outpatient (CLI) | payer BC, SELFPAY ==
--- NOTE | 2022-09-28 17:06 | MM_ITS ---
PROCEDURE INFORMATION: Exam: MG Bilateral Screening 3D Mammography Exam date and time: 09/28/2022 4:57 PM Age: 62 years old Clinical indication: Screening examination TECHNIQUE: Imaging protocol: Bilateral Screening tomosynthesis and 2D mammography including computer-aided detection (CAD) when performed. COMPARISON: 1. MG MM DIG SCREENING MAMM BI W/CAD 01/18/2021 3:18 PM 2. MG MM DIG SCREENING MAMM BI W/CAD 12/25/2019 3:58 PM FINDINGS: MAMMOGRAPHY: Breast composition: The breasts are almost entirely fatty. Mass: No suspicious masses. Architectural distortion: None. Calcifications: No suspicious calcifications. Asymmetric density: None. Skin thickening: None. Axillary adenopathy: None. IMPRESSION: No mammographic evidence of malignancy. Annual screening is recommended unless otherwise clinically indicated. ASSESSMENT: BI-RADS Category 1: Negative
== END ==
PROVIDERS: PCP Family Medicine; Visit Provider Family Medicine
DX: Z12.31 Encounter for screening mammogram for malignant neoplasm of breast (principal)
CPT/HCPCS: 77063; 77067

== ENCOUNTER → 2022-12-15 16:37 | Outpatient (CLI) | payer BC, SELFPAY ==
--- NOTE | 2022-12-15 16:48 | XR_ITS ---
PROCEDURE INFORMATION: Exam: XR Left Foot Exam date and time: 12/15/2022 4:50 PM Age: 62 years old Clinical indication: Pain; Foot; Left; Additional info: Left foot pain TECHNIQUE: Imaging protocol: Radiologic exam of the Left foot. Views: 3 or more views. COMPARISON: CR XR FOOT WT BEARING LT 3V 10/19/2020 9:47 AM FINDINGS: Bones/joints: Healed fracture involving the proximal phalanx of the 3rd ray. Moderately severe degenerative changes most prominent at the 1st MTP where there is progressive joint space narrowing osteophytosis and marginal erosions with adjacent bulky heterotopic ossification. No acute fracture or dislocation. Soft tissues: Normal. IMPRESSION: Moderately severe degenerative changes most prominent at the 1st MTP where there is progressive joint space narrowing osteophytosis and marginal erosions with adjacent bulky heterotopic ossification.
== END ==
PROVIDERS: PCP Physician Assistant; Visit Provider Physician Assistant
DX: M79.672 Pain in left foot (principal)
CPT/HCPCS: 73630

== ENCOUNTER → 2023-04-04 13:41 | Outpatient (CLI) | payer MEDICARE, SELFPAY | PROVIDERS: PCP Family Medicine; Visit Provider Family Medicine | DX: G47.33 Obstructive sleep apnea (adult) (pediatric) (principal); R06.83 Snoring; R53.83 Other fatigue; I10 Essential (primary) hypertension; E66.3 Overweight | CPT/HCPCS: G0399 ==

== ENCOUNTER 2023-06-05 13:07 | Outpatient (CLI) | payer MEDICARE, SELFPAY ==
[2023-06-05 13:12] VITALS: BMI 29.8
[2023-06-05 13:39] LABS: Albumin Level 4.4 g/dl (3.5-5.0)
[2023-06-05 13:42] LABS: Calcium 8.4 mg/dl (8.4-10.2); Creatinine Clearance Estimated 74 mL/min (50-200); Estimated Glomerular Filt Rate 72 ml/min (>60); GFR (African American) 87 ML/MIN (>60)
[2023-06-05 13:57] VITALS: BP 116/54; PULSE 51; RESP 18; TEMP 36.7; O2SAT 98
[2023-06-05 14:20] VITALS: BP 125/65; PULSE 84; RESP 18; O2SAT 98
== END 2023-06-05 14:25 | disposition home or self-care (01) ==
LOC: INF 13:08
PROVIDERS: PCP Family Medicine; Visit Provider Family Medicine
DX: M81.0 Age-related osteoporosis without current pathological fracture (principal)
CPT/HCPCS: 82040; 82310; 82565; 96374; J3489

== ENCOUNTER → 2023-08-26 10:44 | Outpatient (CLI) | payer MEDICARE, SELFPAY ==
--- NOTE | 2023-08-26 11:08 | ECG_ITS ---
APPROVED REPORT Exam: Resting ECG HR:62 bpm ECG Measurements Heart Rate 62 AXES WA 168 P 16 QRSd 90 QRS 1 QT 417 T 43 QTc 423 Conclusion SINUS RHYTHM LOW QRS VOLTAGE IN PRECORDIAL LEADS [QRS DEFLECTION < 1.0 mV IN CHEST LEADS] POSSIBLE ANTERIOR MYOCARDIAL INFARCTION , PROBABLY OLD [30 ms Q WAVE IN V3/V4, OR R < 0.2 mV IN V4] BORDERLINE ECG UNCONFIRMED REPORT Electronically signed by : Seamus Ordaz MD 08/26/2023 18:58:04
[2023-08-26 11:17] LABS: Basophils % 0.6 % (0.1-2.0); Eosinophils # 0.2 K/mm3 (0.0-0.4); Eosinophils % 3.8 % (0.1-12.0); Hematocrit 37.2 % (37.0-47.0); Hemoglobin 12.5 g/dL (12.2-16.2); Lymphocytes # 1.4 K/mm3 (0.7-4.5); Lymphocytes % 35.5 % (10-50); Mean Corpuscular HGB Conc 33.7 g/dL (31.8-35.4); Mean Corpuscular Hemoglobin 31.2 pg (27.0-31.2); Mean Corpuscular Volume 92.7 fl (81-99); Mean Platelet Volume 6.9 fl (7.4-10.4); Monocytes # 0.4 K/mm3 (0.1-1.0); Monocytes % 9.1 % (1.7-9.3); Neutrophils % 51.1 % (37.0-80.0); Platelet Count 274 K/mm3 (142-424); Red Blood Count 4.01 M/mm3 (4.20-5.40); Red Cell Distribution Width 12.3 % (11.5-17.5)
[2023-08-26 11:47] LABS: Chloride 105 mmol/L (98-107); Sodium 140 mmol/L (136-145)
[2023-08-26 11:48] LABS: Potassium 4.4 mmoL/L (3.5-5.1)
[2023-08-26 11:50] LABS: Blood Urea Nitrogen 17 mg/dl (7-17); Estimated Glomerular Filt Rate 84 ml/min (>60); GFR (African American) 102 ML/MIN (>60)
[2023-08-26 11:51] LABS: Anion Gap 10.4 mEq/L (5-15); Calcium 8.6 mg/dl (8.4-10.2); Carbon Dioxide 29 mmol/L (22.0-30.0); Glucose 98 mg/dl (74-100)
[2023-08-26 13:04] LABS: Activated Partial Thrombo Time 24.8 seconds (22.8-30.6); Prothrombin Time 10.8 seconds (10.1-12.5)
== END ==
PROVIDERS: PCP Family Medicine; Visit Provider Family Medicine
DX: Z01.818 Encounter for other preprocedural examination (principal)
CPT/HCPCS: 36415; 80048; 85025; 85610; 85730; 93005

== ENCOUNTER → 2023-09-09 08:04 | Outpatient (CLI) | payer MEDICARE, SELFPAY ==
--- NOTE | 2023-09-09 08:18 | XR_ITS ---
PROCEDURE INFORMATION: Exam: XR Right Foot Exam date and time: 09/09/2023 8:19 AM Age: 63 years old Clinical indication: Injury or trauma; Other: Twisted while walking; Additional info: Pain x 1 day TECHNIQUE: Imaging protocol: Radiologic exam of the right foot. Views: 3 or more views. COMPARISON: No relevant prior studies available. FINDINGS: Bones/joints: There is transverse fracture at the base of the 5th metatarsal. Soft tissues: There is associated soft tissue swelling. IMPRESSION: Fracture of the right 5th metatarsal there
== END ==
PROVIDERS: PCP Family Medicine; Visit Provider Family Medicine
DX: M79.671 Pain in right foot (principal)
CPT/HCPCS: 73630

== ENCOUNTER → 2023-10-03 08:55 | Outpatient (CLI) | payer MEDICARE, SELFPAY ==
--- NOTE | 2023-10-03 09:00 | XR_ITS ---
FINAL REPORT TECHNIQUE: Bone mineral density was calculated of the lumbar spine and hip. CLINICAL HISTORY: OSTEOPENIA OF RT HIP COMPARISON: 01/18/2021 FINDINGS: Using L1-4, the bone mineral density of the spine is 1.016 g/cm2, corresponding to T-score of -0.3. Using the left hip, the bone mineral density of the femoral neck is 0.690 g/cm2, corresponding to a T-score of -1.4. Using the right hip, the bone mineral density of the femoral neck is 0.717 g/cm2, corresponding to a T-score of -1.2. NOTE: T-score: Standard deviation compared with peak bone mass of young adult mean. *Following the recommendations of the International Society of Bone densitometry, classification of hip BMD is based on the lower of two T-scores; total hip or femoral neck. IMPRESSION: Diminished bone mineral density consistent with low bone density. FRAX not reported because patient is being treated for osteoporosis. Reviewed, Interpreted and Dictated by Zaid Wells III, MD Transcribed by Hannah Stanley Authenticated and [facility]
== END ==
PROVIDERS: PCP Family Medicine; Visit Provider Obstetrics & Gynecology Gynecology
DX: M85.851 Other specified disorders of bone density and structure, right thigh (principal)
CPT/HCPCS: 77080

== ENCOUNTER 2023-11-08 15:53 | Outpatient (CLI) | payer MEDICARE, SELFPAY ==
--- NOTE | 2023-11-08 15:57 | MM_ITS ---
PROCEDURE INFORMATION: Exam: MG Bilateral Screening 3D Mammography Exam date and time: 11/08/2023 3:54 PM Age: 63 years old Clinical indication: Screening. No family history of breast cancer. TECHNIQUE: Imaging protocol: Bilateral Screening tomosynthesis and 2D mammography including computer-aided detection (CAD) when performed. COMPARISON: 1. MG MM DIG SCREENING MAMM BI W/CAD 09/28/2022 4:57 PM 2. MG MM DIG SCREENING MAMM BI W/CAD 01/18/2021 3:18 PM 3. MG MM DIG SCREENING MAMM BI W/CAD 12/25/2019 3:58 PM 4. MG MM DIG MAMM DX UNILAT RT CAD 06/14/2019 3:21 PM FINDINGS: MAMMOGRAPHY: Breast composition: The breasts are almost entirely fatty. Mass: No suspicious mass. Architectural distortion: None. Calcifications: No suspicious calcifications. Asymmetric density: None. Skin thickening: None. Axillary adenopathy: None. IMPRESSION: No mammographic evidence of malignancy. Annual screening is recommended unless otherwise clinically indicated. ASSESSMENT: BI-RADS Category 1: Negative
== END 2023-11-08 23:59 ==
LOC: RAD 15:53
PROVIDERS: PCP Family Medicine; Visit Provider Obstetrics & Gynecology Gynecology
DX: Z12.31 Encounter for screening mammogram for malignant neoplasm of breast (principal)
CPT/HCPCS: 77063; 77067

== ENCOUNTER 2024-02-05 16:20 | Outpatient (CLI) | payer MEDICARE, SELFPAY ==
--- NOTE | 2024-02-05 16:26 | XR_ITS ---
PROCEDURE INFORMATION: Exam: XR Left Finger(s) Exam date and time: 02/05/2024 4:27 PM Age: 63 years old Clinical indication: Pain; Finger(s); Left; Additional info: Thumb pain TECHNIQUE: Imaging protocol: Radiologic exam of the left fingers. Views: Minimum 2 views. COMPARISON: CR XR WRIST LT MIN 3V 10/16/2021 12:42 PM FINDINGS: Bones/joints: No acute fracture identified. [id number] degenerative changes of the 1st carpometacarpal joint and mild degenerative changes of the IP joint. Soft tissues: Normal. IMPRESSION: No acute abnormality.
== END 2024-02-05 23:59 ==
LOC: RAD 16:21
PROVIDERS: PCP Family Medicine; Visit Provider Family Medicine
DX: M79.645 Pain in left finger(s) (principal); R22.32 Localized swelling, mass and lump, left upper limb
CPT/HCPCS: 73140

== ENCOUNTER 2024-04-19 08:46 | Outpatient (CLI) | payer MEDICARE, SELFPAY ==
[2024-04-26 15:51] LABS: Pancreatic Elastase, Fecal >800 (>200)
[2024-04-27 02:11] LABS: Fats, Neutral Normal (.); Fats, Total Normal (.)
== END 2024-04-19 23:59 | disposition home or self-care (01) ==
LOC: LAB.DROPOF 08:48
PROVIDERS: PCP Family Medicine; Visit Provider Family Medicine
DX: K52.9 Noninfective gastroenteritis and colitis, unspecified (principal); R74.8 Abnormal levels of other serum enzymes
CPT/HCPCS: 82656; 82705

== ENCOUNTER 2024-05-23 09:05 | Outpatient (CLI) | payer MEDICARE, SELFPAY ==
[2024-05-23 09:18] VITALS: BMI 28.1
[2024-05-23 09:28] LABS: Albumin Level 3.8 g/dl (3.5-5.0)
[2024-05-23 09:31] LABS: Calcium 8.9 mg/dl (8.4-10.2); Creatinine Clearance Estimated 71 mL/min (50-200); Estimated Glomerular Filt Rate 72 ml/min (>60); GFR (African American) 87 ML/MIN (>60)
[2024-05-23 09:45] VITALS: BP 119/63; PULSE 60; RESP 18; TEMP 37.1; O2SAT 95
[2024-05-23] MEDS: 0.9 % SODIUM CHLORIDE 50 ML 100 ML IV (09:45)
[2024-05-23] MEDS: ZOLEDRONIC ACID/MANNITOL-WATER 5 MG/100 ML PGGYBK.BTL 400 MG IV (09:45)
== END 2024-05-23 10:10 | disposition home or self-care (01) ==
LOC: INF 09:06
PROVIDERS: PCP Family Medicine; Visit Provider Family Medicine
DX: M81.0 Age-related osteoporosis without current pathological fracture (principal)
CPT/HCPCS: 82040; 82310; 82565; 96374; J3489

== ENCOUNTER 2024-10-03 10:15 | Outpatient (POV) | payer MEDICARE, SELFPAY | END 2024-10-03 23:59 | disposition home or self-care (01) | LOC: SC 10:18 | PROVIDERS: Visit Provider Specialist/Technologist | DX: Z00.00 Encounter for general adult medical examination without abnormal findings (principal) ==

== ENCOUNTER 2024-12-11 11:05 | Outpatient (CLI) | payer MEDICARE, SELFPAY ==
--- NOTE | 2024-12-11 11:07 | MM_ITS ---
PROCEDURE INFORMATION: Exam: MG Bilateral Screening 3D Mammography Exam date and time: 12/11/2024 11:08 AM Age: 64 years old Clinical indication: Screening examination TECHNIQUE: Imaging protocol: Bilateral Screening tomosynthesis and 2D mammography including computer-aided detection (CAD) when performed. COMPARISON: 1. MG MM DIG SCREENING MAMM BI W/CAD 11/08/2023 3:54 PM 2. MG MM DIG SCREENING MAMM BI W/CAD 09/28/2022 4:57 PM FINDINGS: MAMMOGRAPHY: Breast composition: There are scattered areas of fibroglandular density. Mass: No suspicious masses. Architectural distortion: None. Calcifications: No suspicious calcifications. Asymmetric density: None. Skin thickening: None. Axillary adenopathy: None. IMPRESSION: No mammographic evidence of malignancy. Annual screening is recommended unless otherwise clinically indicated. ASSESSMENT: BI-RADS Category 1: Negative.
== END 2024-12-11 23:59 | disposition home or self-care (01) ==
LOC: RAD 11:06
PROVIDERS: PCP Family Medicine; Visit Provider Obstetrics & Gynecology Gynecology
DX: Z12.31 Encounter for screening mammogram for malignant neoplasm of breast (principal)
CPT/HCPCS: 77063; 77067

== ENCOUNTER 2025-06-17 09:06 | Outpatient (CLI) | payer MEDICARE, SELFPAY ==
--- OUTSIDE RECORDS SUMMARY | 2025-04-10 06:45 | XMS_ITS ---
Author Organization [facility] Address [address] [place] [phone] Care Team Providers Care Safety Relief Valve Technician Name Role Phone Abebe Siegel Primary Care Provider [phone] Allergies No Known Allergies REASON FOR VISIT medicine Medications Medication SIG (Take, Route, Frequency, Duration) Notes Start Date End Date Status WARNING COORDINATION METEOROLOGIST Thyroid 90 MG 1 tablet on an empty stomach Orally Once a day; Duration: 90 days Active hydroCHLOROthiazide 12.5 MG 1 cap(s) Ora lly Once a day; Duration: 90 days Active Silvadene 1 % 1 application Externally Once a day 02/19/2025 Not-Taking Reclast 5 MG/100ML 5 mg intravenously once 04/20/2021 Active Triamcinolone Acetonide 0.1 % 1 application Externally Twice a day 06/11/2024 Active Irbesartan 300 MG TAKE 1 TABLET BY MOUTH ONCE DAILY; Duration: 90 Active Scopolamine 1 MG/3DAYS 1 patch to skin behind the ear as needed Transdermal 10/14/2024 Active Nebivolol HCl 10 MG 1 tablet Orally Once a day; Duration: 90 days Active DULoxetine HCl 60 MG 2 capsule Orally On ce a day; Duration: 90 days Active Xyzal Allergy 24HR 5 MG 1 tab(s) orally once a day (in the evening); Duration: 90 days Active CPAP machine and supplies - as directed as directed 04/10/2025 Active Problems Problem Type SNOMED Code ICD Code Onset Dates Problem Status W/U Status Risk Notes Problem Adjustment disorder with mixed anxiety and depressed mood ([id number]) Adjustment disorder with mixed anxiety and depressed mood (F43.23) Active confirmed Vital Signs Blood pressure systolic 118 mm Hg 04/10/20 25 Blood pressure diastolic 70 mm Hg 025 Heart Rate 62 /min 04/10/2025 Height 66 in 04/10/2025 Weight 178 lbs 04/10/2025 BMI 28.73 kg/m2 04/10/2025 Encounters Encounter Location Date Provider Diagnosis [facility] [address] [place] [address] [address] [facility] [address] [place] [id number] 04/10/2025 Abebe Siegel Adjustment disorder with mixed anxiety and depressed mood F43.23 ; ANALI (obstructive sleep apnea) G47.33 and BMI 28.0-28.9,adult Z68.28 Assessments Encounter Date Diagnosis (ICD Code) Assessment Notes Treatment Notes Treatment Clinical Notes Section Notes 04/10/2025 Adjustment disorder with mixed anxiety and depressed mood (ICD-10 - F43.23) 04/10/2025 ANALI (obstructive sleep apnea) (ICD-10 - G47.33) 04/10/2025 BMI 28.0-28.9,adult (ICD-10 - Z68.28) Plan Of Treatment Medication Medication Name Sig Start Date Stop Date Notes DULoxetine HCl 60 MG 2 capsule Orally On ce a day; Duration: 90 days CPAP machine and supplies - as directed as directed 2024 Next Appt Details Follow Up: 6 Weeks, Reason: Provider Name:Abebe Alexander , 08/25/2025 09:30:00 AM, [address] [facility] [address] [facility], [address], [place], [id number], Progress Notes * LUCIANO MAYBERRY ANNDOB:[birth year] (65 yo F)Acc No.[id number]:04/10/2025 Progress Notes Patient: LUCIANO MCMAHAN ANN Provider: Tamiko Siegel M.D. :1960 A ge:65 Y S ex:Female Date:04/10/2025 Address:[address] [place] [address] , [id number] Subjective: * Chief Complaints: * 1 . Medicine. * HPI: P sychology: 65 year old female presents with c/o Anxiety P t presents today to disucss increasing her Duloxetine. Pt sts that it is helping but sts that she is under a lot stress right now trying to care for her mother. c/o depression. E NT/respiratory: Sleep Apnea P t st that she would like to try a CPAP again, she feels tired all the time. * ROS: D ERMATOLOGY: no R alex. n o H anna marie. G ASTROENTEROLOGY: no N ausea. n o V omiting. U ROLOGY: no D ifficulty urinating. n o B lood in urine. 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 * Surgical History: B ilateral Tubal Ligation , Tonsillectomy , LT Foot , Umbilical Hernia Repair , Colonoscopy 2000,2008,2014,2019. * Hospitalization/Major Diagno stic Procedure: Marcelle allenjosy Polo- [facility] ER 10/04/2011. * Family History: F ather: [...] detector use: yes. Marital Status: . 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 Past smoking status: no. Alcohol: Type: , [...] capsule Orally Once a day , Taking Irbesartan 300 MG Tablet TAKE 1 TABLET BY MOUTH ONCE DAILY , Taking hydroCHLOROthiazide 12.5 MG Capsule 1 cap(s) Orally Once a day , Taking WARNING COORDINATION METEOROLOGIST Thyroid 90 MG Tablet 1 tablet on an empty stomach Orally Once a day , Not-Taking Silvadene 1 % Cream 1 application Externally Once a day , Discontinued Medrol 4 MG Tablet Therapy Pack as directed orally daily , Discontinued Cyclobenzaprine HCl 5 MG Tablet 1 -2 tablet Orally TID , Medication List reviewed and reconciled with the patient * Allergies: N .K.D.A. Objective: * Vitals: W t: 178, Temp: 98.0, BP: 118/70, HR: 62, Nurse: JACQUIE, Ht: 66, BMI:28.73. * Examination: P sychology: General Appearance: N AD. G rooming : a dequate.?Eye contact : delroy thomas. M ood : mattie garcia. Assessment: * Assessment: 1. A djustment disorder with mixed anxiety and depressed mood - F43.23 (Primary) ?2. O SA (obstructive sleep apnea) - G47.33 3 . B W[place] 28.0-28.9,adult - Z68.28 Plan: * Treatment: 2. O SA (obstructive sleep apnea) Start CPAP machine and supplies -, -, as directed, as directed, 1, Refills 0. * Procedure Codes: G 2211 Complex e/m visit add on, 1036F TOBACCO NON-USER, G8420 BMI<30 AND >=22 CALC & DOCU, G8783 BP SCR PRFRM RCMDD DEFIND SCR INTVL, G8752 MOST RECENT SYSTOLIC BP < 140MM HG, G8754 MOST RECENT DIASTOLIC BP < 90MM HG * Follow Up: 6 Weeks * Images: Billing Information: * Visit Code: 53398 Office Visit, Est Pt., Level 3. * Procedure Codes: G2211 Complex e/m visit add on. 1036F TOBACCO NON-USER. G8420 BMI<30 AND >=22 CALC & DOCU. G8783 BP SCR PRFRM RCMDD DEFIND SCR INTVL. G8752 MOST RECENT SYSTOLIC BP < 140MM HG. G8754 MOST RECENT DIASTOLIC BP < 90MM HG. * Electronic signature of Kaitlin Siegel MD on 06/17/2025 at 09:17 AM EDT Sign off status: Pending * Provider: Tamiko Siegel M.D. Date: 0 04/10/2025 Generated for Toro bocanegra/Maryjane/Doc on: 0 06/17/2025 09:17 AM EDT History and Physical Notes * HPI (History of Present Illness) Category Sub-Category Detail Notes Category Not es ENT/respiratory Sleep Apnea Pt st that she w ould like to try a CPAP again, she feels tired all the time Psychology Anxiety Pt presents toda y to disucss increasing her Duloxetine. Pt sts that it is helping but sts that she is under a lot stress right now trying to care for her mother depression Examination Category Sub-Category Detail Notes Category Not es Psychology General Appearance: NAD Grooming : adequate Eye contact : normal Mood : pleasant
--- OUTSIDE RECORDS SUMMARY | 2025-04-21 05:25 | XMS_ITS ---
Author Organization [facility] Address [address] [facility] [address] [facility] [address] [place] [phone] Care Team Providers Care Security Specialist Name Role Phone Abebe Siegel Primary Care Provider REASON FOR VISIT due bone den. mamm, colonoscopy Encounters Encounter Location Date Provider Diagnosis [facility] [address] [facility] [address] [facility] [address] [place] [id number] 04/21/2025 Abebe Siegel Screening for colon cancer Z12.11 and Screening for breast cancer Z12.39 Assessments Encounter Date Diagnosis (ICD Code) Assessment Notes Treatment Notes Treatment Clinical Notes Section Notes 04/21/2025 Screening for colon cancer (ICD-10 - Z12.11) 04/21/2025 Screening for breast cancer (ICD-10 - Z12.39) Plan Of Treatment Pending Test Test Name Order Date colonoscopy 04/21/2025 Mammogram 04/21/2025 Next Appt Details Provider Name:Abebe Alexander ry, 08/25/2025 09:30:00 AM, [address] [facility] [address] [facility], [address], [place], [phone], Progress Notes * VIVIANA MAYBERRY ANNDOB:[birth year] (65 yo F)Acc No.[id number]:04/21/2025 Patient: VIVIANA MCMAHAN :1960 A ge:65 Y S ex:Female Address:[address] [place] [address] [place] [address] Subjective: * Chief Complaints: * D ue bone den. mamm, colonoscopy * Medical History: * Surgical History: * Hospitalization/Major Diagno stic Procedure: * Medications: Objective: * Vitals: * Physical Examination: Assessment: * Assessment: 1. S creening for colon cancer - Z12.11 (Primary) 2 . S creening for breast cancer - Z12.39 Plan: * Treatment: 2.?Screening for breast cancer?Imaging: Mammogram* Marichuy Delgado 05/05/2025 11:44 :26 AM EDT > sent to Katherine for referral to [facility] * Procedure Codes: * true * Date: Generated for Toro bocanegra/Maryjane/Kimberlyitting on: 0 06/17/2025 09:17 AM EDT
--- OUTSIDE RECORDS SUMMARY | 2025-05-23 06:15 | XMS_ITS ---
Author Organization [facility] Address [address] [place] [phone] Care Team Providers Care Customer Trainer Name Role Phone Abebe Siegel Primary Care Provider [phone] Allergies No Known Allergies Results Component Value Reference Range Notes P-Comprehensive Metabolic Pa makayla (CMP) Reviewed date:05/27/2025 09:20:07 AM Interpretation:glu 109 Performing Lab: Notes/Report: Test performed by [facility], [address] , [address], [place] [address] Dany Kam MD, Anti Air Warfare Operations Officer CLIA: [id number] Sodium 143 135-145 mmol/L Potassium 4.6 3.5-5.3 mmol/L Chloride 106 97-108 mmol/L CO2 25 20-32 mmol/L Glucose 109 65-99 mg/dL BUN 17 8-23 mg/dL Creatinine 0.83 0.50-1.00 mg/dL Calcium 9.2 8.6-10.4 mg/dL eGFR by Creatinine 77 >59 mL/min/1.73m2 Protein 6.6 6.0-8.3 g/dL Albumin 4.6 3.5-5.3 g/dL Alkaline Phosphatase 64 35-121 IU/L ALT (SGPT) 16 <5-47 IU/L AST (SGOT) 14 <5-40 IU/L Bilirubin, Total 0.3 <0.2-1.2 mg/dL A/G Ratio 2.3 1.1-2.5 P-T4 Free (thyroxine) Reviewed date:05/27/2025 09:20:07 AM Interpretation:0.85 Performing Lab: Notes/Report: Test performed by [facility] [address] [place] [address] [place] [address] Dany Kam MD, Anti Air Warfare Operations Officer CLIA: [id number] Thyroxine Free (free T4) 0.85 0.86-1.76 ng/dL P-Lipid Panel Reviewed date:05/27/2025 09:20:07 AM Interpretation:Chol 221, Chol/HDL 4.60, Non-HDL 173, LDL 146 Performing Lab: Notes/Report: Test performed by [facility] [address] [place] [address] Eliseo Garcia , [place] [address] Dany Kam MD, Anti Air Warfare Operations Officer CLIA: [id number] Cholesterol 221 <200 mg/dL Triglycerides 135 <150 mg/dL HDL Cholesterol 48 >39 mg/dL Cholesterol / HDL Ratio 4.60 0.00-4.44 Ratio Non-HDL Cholesterol 173 <130 mg/dL LDL Cholesterol (Calculation) 146 <130 mg/dL LDL Cholesterol Levels* Less than 100 mg/dL Optimal 100 to 129 mg/dL Near Optimal/ Above Optimal 130 to 159 mg/dL Borderline High 160 to 189 mg/dL High 190 mg/dL and above Very High * Categories as recommended by the 2004 ATPIII guidelines LDL/HDL Ratio 3.0 <3.3 Ratio LDL Cholesterol Patient History Test Date: 03/21/2024 LDL Results: 143 Units: mg/dL % Change: - Test Date: 05/23/2025 LDL Results: 146 Units: mg/dL % Change: +2% P-TSH Reviewed date:05/27/2025 09:20:07 AM Interpretation:Normal Performing Lab: Notes/Report: Test performed by [facility] [address] [place] [address] , [place] [address] Dany Kam MD, Anti Air Warfare Operations Officer CLIA: [id number] TSH 3.31 0.43-5.25 mU/L P-Microalbumin/Creatinine, R andom Urine Sample Reviewed date:05/27/2025 09:20:07 AM Interpretation:Normal Performing Lab: Notes/Report: Test performed by [facility] [address] [place] [address] , [address] , [place] [address] Dany Kam MD, Anti Air Warfare Operations Officer CLIA: [id number] Albumin/Creatinine Ratio, Urine 3 0-30 ug/m g Microalbumin, Urine, Random 0.3 Creatinine, Urine 89.7 P-Vitamin D 25-Hydroxy Reviewed date:05/27/2025 09:20:07 AM Interpretation:49.4 Performing Lab: Notes/Report: Test performed by [facility] [address] [place] [address] , [place] [address] Dany Kam MD, Anti Air Warfare Operations Officer CLIA: [id number] Vitamin D 25-Hydroxy 49.4 30.0-100.0 ng/mL Interpretation of Vitamin D 25 OH: < 20 ng/mL - Deficiency 20 - 29 ng/mL - Insufficiency 30 - 100 ng/mL - Sufficiency > 100 ng/mL - Super-therapeutic- toxicity may occur above this level. Clinical correlation required. REASON FOR VISIT 6 weeks Medications Medication SIG (Take, Route, Frequency, Duration) Notes Start Date End Date Status Triamcinolone Acetonide 0.1 % 1 applicat ion Externally Twice a day 06/11/2024 Active Scopolamine 1 MG/3DAYS 1 patch to skin b ehind the ear as needed Transdermal 10/14/2024 Active Irbesartan 300 MG TAKE 1 TABLET BY MAURICE TH ONCE DAILY; Duration: 90 Active hydroCHLOROthiazide 12.5 MG 1 cap(s) Ora lly Once a day; Duration: 90 days Active Reclast 5 MG/100ML 5 mg intravenously once 021 Active Nebivolol HCl 10 MG TAKE 1 TABLET BY MAURICE TH ONCE DAILY; Duration: 90 Active Xyzal Allergy 24HR 5 MG 1 tab(s) orally once a day (in the evening); Duration: 90 days Active DULoxetine HCl 60 MG 2 capsule Orally On ce a day; Duration: 90 days Active CPAP machine and supplies - 6-16 as directed ANALI 04/10 Active NURSE CONSULTANT Thyroid 90 MG 1 tablet on an empty stomach Orally Once a day; Duration: 90 days Active Vital Signs Blood pressure systolic 120 mm Hg 05/23/20 25 Blood pressure diastolic 70 mm Hg 025 Heart Rate 78 /min 05/23/2025 Height 66 in 05/23/2025 Weight 180.8 lbs 05/23/2025 BMI 29.18 kg/m2 05/23/2025 Encounters Encounter Location Date [facility] [address] [phone] 05/23/2025 Abebe Siegel HTN (hypertension) I 10 ; Hypothyroidism E03.9 ; Age related osteoporosis M81.0 ; Hypertriglyceridemia E78.1 ; Mixed hyperlipidemia E78.2 ; Adjustment disorder with mixed anxiety and depressed mood F43.23 and BMI 29.0-29.9,adult Z68.29 Assessments Encounter Date Diagnosis (ICD Code) Assessment Notes Treatment Notes Treatment Clinical Notes Section Notes 05/23/2025 HTN (hypertension) (ICD-10 - I10) 05/23/2025 Hypothyroidism (ICD- 10 - E03.9) 05/23/2025 Age related osteopor osis (ICD-10 - M81.0) Patient needs Reclast 05/23/2025 Hypertriglyceridemia (ICD-10 - E78.1) 05/23/2025 Mixed hyperlipidemia (ICD-10 - E78.2) 05/23/2025 Adjustment disorder with mixed anxiety and depressed mood (ICD-10 - F43.23) 05/23/2025 BMI 29.0-29.9,adult (ICD-10 - Z68.29) Plan Of Treatment Treatment Notes Assessment Notes Age related osteoporosis Patient needs R eclast Next Appt Details Follow Up: 6 Months, Reason: Provider Name:Abebe Alexander ry, 08/25/2025 09:30:00 AM, [address], [address], [place], [phone], Progress Notes * IVONE LUCIANO ANNDOB:[birth year] (65 yo F)Acc No.[id number]:05/23/2025 Progress Notes Patient: LUCIANO MCMAHAN ANN Provider: Tamiko Siegel M.D. :1960 A ge:65 Y S ex:Female Date:05/23/2025 Address:[address] [place] [address] S , [id number] Subjective: * Chief Complaints: * 1 . 6 weeks. * HPI: P sychology: 65 year old female presents with c/o depression P t here for 6 week f/u. Pt had Duloxetine dose increased to 60mg on 04/10. Pt states she is doing better since dose increase and has not been crying as much . * ROS: D ERMATOLOGY: no R alex. n o H anna marie. G ASTROENTEROLOGY: no N ausea. n o V omiting. U ROLOGY: no D ifficulty urinating. n o B lood in urine. * Medical History: H ypertension, Hypothyroidism, Mitral Valve Prolapse, Endometriosis, Diverticulosis, Kidney Stones, Y[employer]NER - Dr. Thomas, Osteopenia, 2010, Osteoporosis, 2017, Allergic Rhinitis, Sleep apnea. * Surgical History: B ilateral Tubal Ligation , Tonsillectomy , LT Foot , Umbilical Hernia Repair , Colonoscopy 2000,2008,2014,2019. * Hospitalization/Major Diagno stic Procedure: Marcelle Cuellar- [facility] ER 10/04/2011. * Family History: F ather: alive 90 yrs, Colon cancer in early 60. M other: alive 91 yrs. P aternal Grand Father: . P aternal Grand Mother: . M aternal Grand Father: . M aternal Grand Mother: . 1 son(s) , 1 daughter(s) . . * Social History: C URRENT TOBACCO USE: No . C affeine: yes, frequency:tea. Exercise: no. Home smoke detector use: yes. Marital Status: . 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 Past smoking status: no. Alcohol: Type: , [...] the ear as needed Transdermal , Taking Irbesartan 300 MG Tablet TAKE 1 TABLET BY MOUTH ONCE DAILY , Taking hydroCHLOROthiazide 12.5 MG Capsule 1 cap(s) Orally Once a day , Taking NURSE CONSULTANT Thyroid 90 MG Tablet 1 tablet on an empty stomach Orally Once a day , Taking DULoxetine HCl 60 MG Capsule Delayed Release Particles 2 capsule Orally Once a day , Taking CPAP machine and supplies - - 6-16 as directed , Notes to Pharmacist: ANALI, Taking Nebivolol HCl 10 MG Tablet TAKE 1 TABLET BY MOUTH ONCE DAILY , Discontinued Silvadene 1 % Cream 1 application Externally Once a day , Medication List reviewed and reconciled with the patient * Allergies: N .K.D.A. Objective: * Vitals: W t: 180.8, Temp: 98.1, BP: 120/70, HR: 78, Nurse: deborah, Ht: 66, BMI:29.18. * Examination: P sychology: General Appearance: N AD. G rooming : a dequate.?Eye contact : n ormal. M ood : p leasant. H eart: R SR. L ungs: c lear to auscultation. Assessment: * Assessment: 1. H TN (hypertension) - I10 (Primary) 2 . H ypothyroidism - E03.9 ? 3 . A ge related osteoporosis - M81.0 4 . H ypertriglyceridemia - E78.1 5 . M ixed hyperlipidemia - E78.2 6 . A djustment disorder with mixed anxiety and depressed mood - F43.23 7 . B NC 29.0-29.9,adult - Z68.29 Plan: * Treatment: Value Reference Range A /G Ratio 2.3 1.1-2.5 - * A lbumin 4.6 3.5-5.3 - g/dL * A lkaline Phosphatase 64 35-121 - IU/L * A LT (SGPT) 16 <5-47 - IU/L * A ST (SGOT) 14 <5-40 - IU/L * B ilirubin, Total 0.3 <0.2-1.2 - mg/dL * B UN 17 8-23 - mg/dL * C alcium 9.2 8.6-10.4 - mg/dL * C hloride 106 97-108 - mmol/L * C O2 25 20-32 - mmol/L * C reatinine 0.83 0.50-1.00 - mg/dL * G lucose 109 H 65-99 - mg/dL * P otassium 4.6 3.5-5.3 - mmol/L * S odium 143 135-145 - mmol/L * P rotein 6.6 6.0-8.3 - g/dL * e GFR by Creatinine 77 >59 - mL/min/1.73m2 * Florencia Stveens 05/27/2025 09: 19:59 AM EDT > See phone encounter ?LAB: P-Microalbumin/Creatinine, Random Urine Sample (Collection Date & Time - 05/23/2025 10:00 AM)?Normal* Value Reference Range A lbumin/Creatinine Ratio, Urine 3 0-30 - ug /mg * C reatinine, Urine 89.7 - mg/dL * M icroalbumin, Urine, Random 0.3 - mg/dL * Florencia Stevens 05/27/2025 09: 19:59 AM EDT > See phone encounter 2.?Hypothyroidism?LAB: P-T4 Free (thyroxine) (Collection Date & Time - 05/23/2025 10:00 AM)? 0.85* Value Reference Range T hyroxine Free (free T4) 0.85 L 0.86-1.76 - ng/d L * Florencia Stevens 05/27/2025 09: 19:59 AM EDT > See phone encounter ?LAB: P-TSH (Collection Date & Time - 05/23/2025 10:00 AM)?Normal* Value Reference Range T SH 3.31 0.43-5.25 - mU/L * Florencia Stevens 05/27/2025 09: 19:59 AM EDT > See phone encounter 3.?Age related osteoporosis?LAB: P-Vitamin D 25-Hydroxy (Collection Date & Time - 05/23/2025 10:00 AM)? 49.4* Value Reference Range V itamin D 25-Hydroxy 49.4 30.0-100.0 - ng/mL * Florencia Stevens 05/27/2025 09: 19:59 AM EDT > See phone encounter Notes: Patient needs Reclast??4.?Hypertriglyceridemia?LAB: P-Comprehensive Metabolic Panel (CMP) (Collection Date & Time - 05/23/2025 10:00 AM)?glu 109* Value Reference Range A /G Ratio 2.3 1.1-2.5 - * A lbumin 4.6 3.5-5.3 - g/dL * A lkaline Phosphatase 64 35-121 - IU/L * A LT (SGPT) 16 <5-47 - IU/L * A ST (SGOT) 14 <5-40 - IU/L * B ilirubin, Total 0.3 <0.2-1.2 - mg/dL * B UN 17 8-23 - mg/dL * C alcium 9.2 8.6-10.4 - mg/dL * C hloride 106 97-108 - mmol/L * C O2 25 20-32 - mmol/L * C reatinine 0.83 0.50-1.00 - mg/dL * G lucose 109 H 65-99 - mg/dL * P otassium 4.6 3.5-5.3 - mmol/L * S odium 143 135-145 - mmol/L * P rotein 6.6 6.0-8.3 - g/dL * e GFR by Creatinine 77 >59 - mL/min/1.73m2 * Florencia Stevens 05/27/2025 09: 19:59 AM EDT > See phone encounter 5.?Mixed hyperlipidemia?LAB: P-Comprehensive Metabolic Panel (CMP) (Collection Date & Time - 05/23/2025 10:00 AM)?glu 109* Value Reference Range A /G Ratio 2.3 1.1-2.5 - * A lbumin 4.6 3.5-5.3 - g/dL * A lkaline Phosphatase 64 35-121 - IU/L * A LT (SGPT) 16 <5-47 - IU/L * A ST (SGOT) 14 <5-40 - IU/L * B ilirubin, Total 0.3 <0.2-1.2 - mg/dL * B UN 17 8-23 - mg/dL * C alcium 9.2 8.6-10.4 - mg/dL * C hloride 106 97-108 - mmol/L * C O2 25 20-32 - mmol/L * C reatinine 0.83 0.50-1.00 - mg/dL * G lucose 109 H 65-99 - mg/dL * P otassium 4.6 3.5-5.3 - mmol/L * S odium 143 135-145 - mmol/L * P rotein 6.6 6.0-8.3 - g/dL * e GFR by Creatinine 77 >59 - mL/min/1.73m2 * Florencia Stevens 05/27/2025 09: 19:59 AM EDT > See phone encounter ?LAB: P-Lipid Panel (Collection Date & Time - 05/23/2025 10:00 AM)?Chol 221, Chol/HDL 4.60, Non-HDL 173, LDL 146* Value Reference Range C holesterol / HDL Ratio 4.60 H 0.00-4.44 - Ratio * C holesterol 221 H <200 - mg/dL * H DL Cholesterol 48 >39 - mg/dL * L DL Cholesterol (Calculation) 146 H <130 - mg/d L * L DL/HDL Ratio 3.0 <3.3 - Ratio * N on-HDL Cholesterol 173 H <130 - mg/dL * T riglycerides 135 <150 - mg/dL * Florencia Stevens 05/27/2025 09: 19:59 AM EDT > See phone encounter * Procedure Codes: G 2211 Complex e/m visit add on, 1036F TOBACCO NON-USER, G8950 PREHTN/HTN BP DOC INDCD F/U DOC, G8752 MOST RECENT SYSTOLIC BP < 140MM HG, G8754 MOST RECENT DIASTOLIC BP < 90MM HG, G8420 BMI<30 AND >=22 CALC & DOCU * Follow Up: 6 Months * Images: Billing Information: * Visit Code: 14299 Office Visit, Est Pt., Level 4. * Procedure Codes: G2211 Complex e/m visit add on. 1036F TOBACCO NON-USER. G8950 PREHTN/HTN BP DOC INDCD F/U DOC. G8752 MOST RECENT SYSTOLIC BP < 140MM HG. G8754 MOST RECENT DIASTOLIC BP < 90MM HG. G8420 BMI<30 AND >=22 CALC & DOCU. * Electronic signature of Kaitlin Siegel MD on 06/17/2025 at 09:18 AM EDT Sign off status: Pending * Provider: Tamiko Siegel M.D. Date: 0 05/23/2025 Generated for Toro bocanegra/Maryjane/Doc on: 0 06/17/2025 09:18 AM EDT History and Physical Notes * HPI (History of Present Illness) Category Sub-Category Detail Notes Category Not es Psychology depression Pt here for 6 we ek f/u. Pt had Duloxetine dose increased to 60mg on 04/10. Pt states she is doing better since dose increase and has not been crying as much Examination Category Sub-Category Detail Notes Category Not es Psychology Heart: RSR Lungs: clear to auscultatio n General Appearance: NAD Grooming : adequate Eye contact : normal Mood : pleasant
--- OUTSIDE RECORDS SUMMARY | 2025-06-17 09:17 | XMS_ITS | Clinical Summary ---
Author Organization [facility] Address [address] [place] [address] Care Team Providers Care Development Manager Name Role Phone Abebe Siegel MD Primary Care Provider + [phone] Allergies No known active allergies Medications Thyroid 60 MG PO tablet Take 1 tablet by mouth Daily. Active citalopram (CeleXA) 10 MG tablet Take 1 tablet by mouth Daily. Active famotidine (PEPCID) 10 MG tablet Take 1 tablet by mouth 2 (Two) Times a Day. Active fluticasone (CUTIVATE) 0.05 % cream Apply 1 application topically to the appropriate area as directed. Active irbesartan (AVAPRO) 150 MG tablet Take 2 tablets by mouth Every Night. Active levocetirizine (XYZAL) 5 MG tablet Take 1 tablet by mouth Every Evening. Active pseudoephedrine (SUDAFED) 120 MG 12 hr tablet Take 1 tablet by mouth Every 12 (Twelve) Hours. Active nebivolol (BYSTOLIC) 10 MG tablet 3 Active hydroCHLOROthia zide (MICROZIDE) 12.5 MG capsule 3 Active aspirin 81 MG EC tablet Take 1 tablet by mouth Daily. Active neomycin-polymy jonathan-hydrocortis one (CORTISPORIN) 3.5-19521-9 otic solutionIndicat ions:Right ear pain Administer 3 drops into both ears 4 (Four) Times a Day. 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 Not on file Does Anyone Keep You from Co ntacting Others or Doint Things Outside the Home? Not on file 08/11/2023 Physical Sign of Abuse Present Not on file 1 Housing Stability Answer Date Recorded Current Living Arrangements Not on file 07/30 Potentially Unsafe Housing Conditions Not on alejandro e 08/11/2023 Family and Community Support Answer Eugene e Recorded Help with Day-to-Day Activities Not on file 08/11/2023 Lonely or Isolated Not on file 08/11/2023 Employment Answer Date Recorded Do you want help finding or keeping work or a roberta b? Not on file 08/11/2023 Disabilities Answer Date Recorded Concentrating, Remembering, or Making Decisions Difficulty Not on file 08/11/2023 Doing Errands Independently Difficulty Not on fi le 08/11/2023 Education Answer Date Recorded Help with school or training? Not on file Preferred Language Not on file 08/11/2023 Comments Unknown Sex and Gender Information Value Date Recorded Sex Assigned at Not on file Legal Sex Female 3:14 PM EDT Gender Identity Not on file Sexual Orientation Not on file Last Filed Vital Signs Vital Sign Reading Time Taken Comments Blood Pressure 132/84 05/30/2024 2:48 PM EDT Pulse 66 05/30/2024 2:48 PM EDT Temperature 36.8 C (98.2 F) 05/30/2024 2:48 PM EDT Respiratory Rate 16 05/30/2024 2:48 PM EDT Oxygen Saturation 99% 05/30/2024 2:48 PM EDT Inhaled Oxygen Concentration - - Weight 83.5 kg (184 lb) 02/24/2023 9:20 AM EDT Height 168.9 cm (5' 6.5 ) 02/24/2023 9:20 AM EDT Body Mass Index 29.25 02/24/2023 9:20 AM EDT Plan of Treatment Upcoming Encounters Date Type Department Care Team (Late st Contact Info) Description 12/16/2025 11:00 AM EST Office Visit [facility] [address] [facility] [address] [place] [address] Claus Haley MD [address] [facility] [address] [place] [id number] Health Maintenance Due Date Last Done Comments DXA SCAN 1958 MAMMOGRAM 1998 COLOGUARD 2003 COLON CANCER SCREENING 5 YEA R SIGMOIDOSCOPY 2003 COLONOSCOPY 2003 COL[address] CANCER SCREENING 2003 CT COLONOGRAPHY 2003 FECAL OCCULT BLOOD TEST 2003 FIT Testing (1 year) 2003 TDAP/TD VACCINES (2 - Tdap) 01/01/2007 01/01/1997 ZOSTER VACCINE (1 of 2) 02/07/2008 ANNUAL WELLNESS VISIT 02/24/2023 HEPATITIS C SCREENING 02/24/2023 COVID-19 Vaccine ( - season) 2024, 12/28/2020 INFLUENZA VACCINE 07/30/2025 08/28/2020, , 08/22/2017 Pneumococcal Vaccine 50+ Completed 11/10/2023 Insurance [address] [place] [address] [facility] Medicare [employer] PPO [place] [id number] Care Teams Development Manager Relationship Specialty Start Date End Date Abebe Siegel MD [address] [facility] [address] [facility] [place] [address] [place] [address] PCP - General Family Medicine 02/24/23
--- OUTSIDE RECORDS SUMMARY | 2025-06-17 09:18 | XMS_ITS | Patient Health Record ---
Author Organization [facility] Address [address] [facility] [address] [facility] [address] [place] [id number] Care Team Providers Care Carton Wrapper Name Role Phone Abebe Siegel Primary Care Provider Yola Caldwell Unavailable [phone] Xenia Oconnell Unavailable [phone] Allergies No Known Allergies Results Component Value Reference Range Notes Urinalysis - Inhouse Reviewed date:03/11/2025 09:29:24 AM Interpretation: Performing Lab: Notes/Report: Color/Clarity Yellow clear Leuk Neg Nitrite Neg Urobili 3.2 Protein Neg pH 6.0 Blood Neg Sp. Gr. 1.015 Ketone Neg Bili Neg Gluc Neg Urinalysis - Inhouse Reviewed date:07/31/2024 03:37:28 PM Interpretation: Performing Lab: Notes/Report: Color/Clarity yellow/cloudy Leuk 1+ Nitrite Neg Urobili 3.2 Protein Neg pH 5.5 Blood 1+ Sp. Gr. 1.020 Ketone Neg Bili Neg Gluc Neg P-Culture, Urine Reviewed date:08/05/2024 09:04:23 AM Interpretation:Sensitive Performing Lab: Notes/Report: Test performed by [facility], [facility] [address] [place] [address] , [address], [place] [address] Dany Kam MD, Supervisor Home Energy Consultant CLIA: [id number] Specimen Source Urine - Void Culture, Urine See Below See Microbiol ogy Report Escherichia coli 15,000-25,000 CFU/ml Escherichia coli Sensitivity Panel See Below Organism E. coli Antibiotic INTERP Amikacin S Ampicillin R Aztreonam S Cefepime S Cefoxitin S Ceftazidime S Ceftriaxone S Cefuroxime S Ciprofloxacin S Ertapenem S Gentamicin S Imipenem S Levofloxacin S Meropenem S Nitrofurantoin S Piperacillin/Tazo S Tetracycline S Tobramycin S Trimeth/Sulfa S S=SUSCEPTIBLE I=INTERMEDIATE R=RESISTANT P-Vitamin D 25-Hydroxy Reviewed date:05/27/2025 09:20:07 AM Interpretation:49.4 Performing Lab: Notes/Report: Test performed by [facility] [address] [place] [address] , [place], [place] [address] Dany Kam MD, Supervisor Home Energy Consultant CLIA: [id number] Vitamin D 25-Hydroxy 49.4 30.0-100.0 ng/mL Interpretation of Vitamin D 25 OH: < 20 ng/mL - Deficiency 20 - 29 ng/mL - Insufficiency 30 - 100 ng/mL - Sufficiency > 100 ng/mL - Super-therapeutic- toxicity may occur above this level. Clinical correlation required. P-Microalbumin/Creatinine, R andom Urine Sample Reviewed date:05/27/2025 09:20:07 AM Interpretation:Normal Performing Lab: Notes/Report: Test performed by [facility], [address] , [address], [place] [address] Dany Kam MD, Supervisor Home Energy Consultant CLIA: [id number] Albumin/Creatinine Ratio, Urine 3 0-30 ug/mg Microalbumin, Urine, Random 0.3 Creatinine, Urine 89.7 P-TSH Reviewed date:05/27/2025 09:20:07 AM Interpretation:Normal Performing Lab: Notes/Report: Test performed by [facility] [address] , [place] [address] Dany Kam MD, Supervisor Home Energy Consultant CLIA: [id number] TSH 3.31 0.43-5.25 mU/L P-Lipid Panel Reviewed date:05/27/2025 09:20:07 AM Interpretation:Chol 221, Chol/HDL 4.60, Non-HDL 173, LDL 146 Performing Lab: Notes/Report: Test performed by [facility] [address] , [address], [place] [address] Dany Kam MD, Supervisor Home Energy Consultant CLIA: [id number] Cholesterol 221 <200 mg/dL Triglycerides 135 <150 [...] Results: 143 Units: mg/dL % Change: - ------- Test Date: 05/23/2025 LDL Results: 146 Units: mg/dL % Change: +2% P-T4 Free (thyroxine) Reviewed date:05/27/2025 09:20:07 AM Interpretation:0.85 Performing Lab: Notes/Report: Test performed by [facility] [address] [place], [place] [email or web address] [place] , [place] [address] Dany Kam MD, Supervisor Home Energy Consultant CLIA: [id number] Thyroxine Free (free T4) 0.85 0.86-1.76 ng/dL P-Comprehensive Metabolic Pa makayla (CMP) Reviewed date:05/27/2025 09:20:07 AM Interpretation:glu 109 Performing Lab: Notes/Report: Test performed by [facility] [address] [place] [address] , [place] [id number] Dany Kam MD, Supervisor Home Energy Consultant CLIA: [id number] Sodium 143 135-145 mmol/L Potassium 4.6 3.5-5.3 [...] 0.3 <0.2-1.2 mg/dL A/G Ratio 2.3 1.1-2.5 Urinalysis - Inhouse Reviewed date:08/12/2024 12:07:38 PM Interpretation: Performing Lab: Notes/Report: Color/Clarity yellow/clear Leuk neg Nitrite neg Urobili 3.2 Protein neg pH 5.5 Blood neg Sp. Gr. 1.020 Ketone neg Bili neg Gluc neg Rapid Strep- Inhouse Reviewed date:10/01/2024 10:22:46 AM Interpretation:pos Performing Lab: Notes/Report: pos strep test pos P-TSH Reviewed date:10/02/2024 11:22:14 AM Interpretation:1.70 Performing Lab: Notes/Report: Test performed by [facility], [address] , [address], [place] [address] Dany Kam MD, Supervisor Home Energy Consultant CLIA: [id number] TSH 1.70 0.43-5.25 mU/L Medications Medication SIG (Take, Route, Frequency, Duration) Notes Start Date End Date Status Triamcinolone Acetonide 0.1 % 1 application Externally Twice a day 06/11/2024 Active Scopolamine 1 MG/3DAYS 1 patch to skin behind the ear as needed Transdermal 10/14/2024 Active Irbesartan 300 MG TAKE 1 TABLET BY MOUTH ONCE DAILY; Duration: 90 Active Reclast 5 MG/100ML 5 mg intravenously once M81.0 Age Related Osteoporosis 04/20/2021 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 Thyroid 120 MG 1 tablet on an empty stomach Orally Once a day; Duration: 90 days 05/28/2025 Active hydroCHLOROthiazide 12.5 MG 1 cap(s) Orally Once a day; Duration: 90 days Active Nebivolol HCl 10 MG TAKE 1 TABLET BY MOUTH ONCE DAILY; Duration: 90 Active Xyzal Allergy 24HR 5 MG 1 tab(s) orally once a day (in the evening); Duration: 90 days Active DULoxetine HCl 60 MG 2 capsule Orally Once a day; Duration: 90 days Active CPAP machine and supplies - 6-16 as directed ANALI 04/10/2025 Active Immunizations Vaccine Route Administration Date Status Comme nts Tetanus Tdap-Adacel (over 7yrs) IM Intramuscular 05/26/2011 Administered Tetanus Tdap-Adacel (over 7yrs) IM Intramuscular 08/19/2015 Administered Prevnar (PCV20) IM Intramuscular 11/10/2023 Administered ppd ID Intradermal 06/23/2015 Administered ppd ID Intradermal 06/02/2020 Administered ppd ID Intradermal 12/15/2022 Administered ppd ID Intradermal 12/30/2024 Administered Fluzone Quad (6months&older) IM Intramuscular 08/19/2015 Administered Fluzone Quad (6months&older) IM Intramuscular 08/22/2017 Administered Fluzone Quad (6months&older) IM Intramuscular 07/31/2018 Administered Fluzone Quad (6months&older) IM Intramuscular 07/28/2019 Administered Fluzone Quad (6months&older) IM Intramuscular 08/28/2020 Administered Fluzone Quad (6months&older) IM Intramuscular 09/01/2022 Administered DT, 7 YEARS OR OLDER Unknown 01/01/1997 Administered COVID 19 Pfizer Unknown 12/26/2020 Administered COVID 19 Pfizer Unknown 01/23/2021 Administered Problems Problem Type SNOMED Code ICD Code Onset Dates Problem Status W/U Status Risk Notes Problem Essential hypertension (43216123) HTN [Hypertension] (401.9) Active confirmed Problem Hypertension (98547101) HTN (hypertension) (I10) Active confirmed Problem Abnormal mammogram (415145617) Abnormal mammogram (R92.8) Active confirmed Problem Hypertriglyceridemia (759479094) Hypertriglyceridemia (E78.1) Active confirmed Problem Plantar wart of left foot (63569942026168423) Plantar wart of left foot (B07.0) Active confirmed Problem Plantar wart (91174685) Plantar wart (B07.0) Active confirmed Problem Mixed hyperlipidemia (066048140) Mixed hyperlipidemia (E78.2) Active confirmed Problem Adjustment disorder with mixed anxiety and depressed mood (037911362) Adjustment disorder with mixed anxiety and depressed mood (F43.23) Active confirmed Problem Hypothyroidism (94987572) Hypothyroidism (E03.9) Active confirmed Problem Obstructive sleep apnea syndrome (46777821) ANALI (obstructive sleep apnea) (G47.33) Active confirmed Problem Sciatica (94255681) Right sided sciatica (M54.31) Active confirmed Problem Mitral valve disorde r (90267092) MVP (mitral valve prolapse) (I34.1) Active confirmed Problem Adjustment disorder with depressed mood (46265442) Reaction, adjustment, with depressed mood, brief (F43.21) Active confirmed Problem Age related osteoporosis (09122015) Age related osteoporosis (M81.0) Active confirmed Problem Sprain of left wrist (46313193120693730) Sprain of left wrist, initial encounter (S63.502A) Active confirmed Problem Allergic rhinitis (04056513) Allergic rhinitis, unspecified seasonality, unspecified trigger (J30.9) Active confirmed Problem Sebaceous cyst of skin of breast (61301574) Sebaceous cyst of skin of left breast (N60.82) Active confirmed Vital Signs Heart Rate 78 /min 05/23/2025 Blood pressure diastolic 70 mm Hg 05/23/2025 Height 66 in 05/23/2025 Blood pressure systolic 120 mm Hg 05/23/2025 Weight 180.8 lbs 05/23/2025 BMI 29.18 kg/m2 05/23/2025 Encounters Encounter Location Date Provider Diagnosis [facility] [address] [facility] [address] [place], [place] [id number] 07/31/2024 Xenia Crowdy Dysuria R30.0 [facility] [address] [facility] [address] [place], [place] [id number] 08/12/2024 Abebe [place] Acute UTI N39.0 and Otalgia, right ear H92.01 [facility] [address] [facility] [address] [place], [place] [id number] 10/01/2024 Yola Caldwell Hypothyroidism E03.9 and Strep pharyngitis J02.0 [facility] [address] [place], [place] [id number] 12/30/2024 Abebe [place] PPD screening test Z 11.1 [facility] [address] [facility] [address] [place], [place] [id number] 01/01/2025 Abebe [place] [facility] [address] [facility] [address] [place], [place] [id number] 02/19/2025 Abebe [place] Partial thickness bu rn of left lower extremity, initial encounter T24.202A and BMI 27.0-27.9,adult Z68.27 [facility] [address] [place], [place] [id number] 03/10/2025 Yola Caldwell Acute right-sided low back pain without sciatica M54.50 [facility] [address] [place], [place] [id number] 04/10/2025 Abebe [place] Adjustment disorder with mixed anxiety and depressed mood F43.23 ; ANALI (obstructive sleep apnea) G47.33 and BMI 28.0-28.9,adult Z68.28 [facility] [address] [place], [place] [id number] 05/23/2025 Abebe [place] HTN (hypertension) I 10 ; Hypothyroidism E03.9 ; Age related osteoporosis M81.0 ; Hypertriglyceridemia E78.1 ; Mixed hyperlipidemia E78.2 ; Adjustment disorder with mixed anxiety and depressed mood F43.23 and BMI 29.0-29.9,adult Z68.29 [facility] [address] [place], [place] [id number] 08/02/2024 Abebe [place] [facility] [address] [place], [place] [id number] 08/09/2024 Abebe [place] [facility] [address] [facility] [address] [place], [place] [id number] 08/19/2024 Abebe [place] Allergic rhinitis, unspecified seasonality, unspecified trigger J30.9 [facility] [address] [place], [place] [id number] 10/14/2024 Abebe [place] [facility] [address] [place], [place] [id number] 04/11/2025 Abebe [place] ANALI (obstructive sle ep apnea) G47.33 [facility] [address] [facility] [address] [place], [place] [id number] 04/21/2025 Abebe [place] Screening for colon cancer Z12.11 and Screening for breast cancer Z12.39 [facility] [address] [place], [place] [id number] 05/23/2025 Abebe [place] Age related osteopor osis M81.0 [facility] [address] [place] [id number] 05/27/2025 Abebe [place] [facility] [address] [place], [place] [id number] 05/29/2025 Abebe [place] [facility] [address] [facility] [address] [place], [place] [id number] 06/03/2025 Abebe [place] Assessments Encounter Date Diagnosis (ICD Code) Assessment Notes Treatment Notes Treatment Clinical Notes Section Notes 07/31/2024 Dysuria (ICD-10 - R30.0) Inc rease water intake, no caffeine, no baths only showers 08/12/2024 Otalgia, right ear (ICD-10 - H92.01) Resume nasal steroid use, symptoms seem to be due to allergic rhinitis 08/12/2024 Acute UTI (ICD-10 - N39.0) Finish antibiotic 08/19/2024 Allergic rhinitis, unspecified seasonality, unspecified trigger (ICD-10 - J30.9) 10/01/2024 Strep pharyngitis (ICD-10 - J02.0) gargles q2h while awake with hot salt water, fluids, rest, supportive measures for fever/symptom relief 10/01/2024 Hypothyroidism (ICD- 10 - E03.9) 12/30/2024 PPD screening test (ICD-10 - Z11.1) 02/19/2025 BMI 27.0-27.9,adult (ICD-10 - Z68.27) 02/19/2025 Partial thickness bu rn of left lower extremity, initial encounter (ICD-10 - T24.202A) 03/10/2025 Acute right-sided lo w back pain without sciatica (ICD-10 - M54.50) heat/ice application; no lifting/pushi ng/pulling; OTC NSAID creams and massage 04/10/2025 Adjustment disorder with mixed anxiety and depressed mood (ICD-10 - F43.23) 04/10/2025 ANALI (obstructive sle ep apnea) (ICD-10 - G47.33) 04/11/2025 ANALI (obstructive sle ep apnea) (ICD-10 - G47.33) 04/21/2025 Screening for breast cancer (ICD-10 - Z12.39) 04/21/2025 Screening for colon cancer (ICD-10 - Z12.11) 05/23/2025 HTN (hypertension) (ICD-10 - I10) 05/23/2025 Hypothyroidism (ICD- 10 - E03.9) 05/23/2025 Age related osteopor osis (ICD-10 - M81.0) 05/23/2025 Age related osteopor osis (ICD-10 - M81.0) Patient needs Reclast 04/10/2025 BMI 28.0-28.9,adult (ICD-10 - Z68.28) 05/23/2025 Hypertriglyceridemia (ICD-10 - E78.1) 05/23/2025 Mixed hyperlipidemia (ICD-10 - E78.2) 05/23/2025 Adjustment disorder with mixed anxiety and depressed mood (ICD-10 - F43.23) 05/23/2025 BMI 29.0-29.9,adult (ICD-10 - Z68.29) Plan Of Treatment Pending Test Test Name Order Date colonoscopy 04/21/2025 EKG 08/25/2023 Mammogram 04/21/2025 Next Appt Details Provider Name:Abebe Alexander ry, 08/25/2025 09:30:00 AM, [address] [facility] [address] [facility], [address], [place], [place], [id number], Insurance Providers Payer Name Payer Address Payer Phone Subscriber Number Group Number Insured Name Patient Relationship to Insured Coverage Start Date Coverage End Date [facility] [address] [address] [place] [address] [id number] LUCIANO MAYBERRY Self - patient is the insured Medications Administered Medication Instructions Date of Administration Dosage Notes Bicillin LA 1,200,000 10/18/2012 Bicillin LA 1,200,000 09/02/2016 2 mL Dexamethasone 09/14/2005 1 mL Dexamethasone 05/17/2008 4 mg Medical (General) History Medical History History ICD Code Hypertension Hypothyroidism Mitral Valve Prolapse Endometriosis Diverticulosis 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
[2025-06-17 09:37] VITALS: BP 113/73; PULSE 52; RESP 14; TEMP 36.6; O2SAT 98
[2025-06-17] MEDS: SODIUM CHLORIDE 0.9% 10ML FLUSH SYRINGE 10 ML IV (09:37)
[2025-06-17] MEDS: ZOLEDRONIC ACID/MANNITOL-WATER 5 MG/100 ML PGGYBK.BTL 400 MG IV (09:37)
[2025-06-17 09:55] VITALS: BP 111/65; PULSE 55; RESP 14; TEMP 36.6; O2SAT 98
== END 2025-06-17 09:55 | disposition home or self-care (01) ==
LOC: INF 09:07
PROVIDERS: PCP Family Medicine; Visit Provider Family Medicine
DX: M81.0 Age-related osteoporosis without current pathological fracture (principal)
CPT/HCPCS: 96374; J3489

== ENCOUNTER 2025-07-17 11:43 | Day surgery (SDC) | payer MEDICARE, SELFPAY ==
[2025-07-11 13:07] VITALS: BMI 28.3
--- NOTE | 2025-07-15 16:43 | EXP.HP ---
History of Present Illness *Admission Date: 07/17/25 *History of present illness: Mrs. Wiseman is a 65-year-old female who is here for follow-up screening/surveillance colonoscopy. The patient did have a colonoscopy with me in March 2020 and had 4 polyps removed (tubular adenomas x 3/hyperplastic polyp x 1) removed. The patient does state that her father had colon cancer in his early 60s. She did have normal prior colonoscopies in 2000, April 2009 and January 2015. The examination is deemed medically necessary for [default value]. The patient has been seen, interviewed and examined prior to the procedure by both myself and the anesthesia provider. [facility] Disclaimer: The information contained in this section may have been updated after the patient was seen, as this information can be updated by other users. Medical History (Updated 07/15/25 @ 16:46 by Azar Alberto II, MD) Sleep apnea treated with continuous positive airway pressure (CPAP) Hearing loss Eustachian tube dysfunction Otalgia, right ear Congestion of right ear Allergic rhinitis Valvular heart disease Hypothyroidism Anxiety Seasonal allergies UTI (urinary tract infection) Osteoarthritis HTN (hypertension) Surgical History History of foot surgery History of colonoscopy Hx of tonsillectomy History of bilateral tubal ligation History of bunionectomy of left great toe Family History Other Family history of cancer Social History Smoking Status: Never smoker second hand exposure: No alcohol intake: current alcohol intake frequency: a few times a week substance use type: denies use current occupational status: retired Travel in the last 8 weeks?: None household members: spouse housing: house 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 current occupational exposures/hazards: No caffeine: No Other Medical History Have you received the Flu Vaccine for this season: Yes Have you received the Pneumonia Vaccine: No Review of Systems Review of Systems Review of systems (narrative): Negative *Cardiovascular Comments: Negative *Gastrointestinal Comments: Negative *Genitourinary Comments: Negative *Musculoskeletal Comments: Negative *Neurologic Comments: Negative Meds Home Medications and Allergies Home Medications ?Medication ?Instructions ?Recorded ?Confirmed ?Type fluticasone propionate 50 1 spr intranasal DAILY allergies 04/27/20 07/11/25 History mcg/actuation nasal spray,suspension irbesartan 300 mg tablet 300 mg PO DAILY High blood pressure 01/14/21 07/11/25 History dextromethorphan-guaifenesin 30 1 tab PO Q12H PRN Cough 08/28/24 07/11/25 History mg-600 mg tablet extended [id number] hr (Mucinex DM) duloxetine 60 mg capsule,delayed 60 mg PO DAILY 08/28/24 07/11/25 History release hydrochlorothiazide 12.5 mg capsule 12.5 mg PO DAILY 08/28/24 07/11/25 History nebivolol 10 mg tablet (Bystolic) 10 mg PO DAILY 08/28/24 07/11/25 History thyroid (pork) 90 mg tablet (DRAWER IN PLAIN LOOM 90 mg PO DAILY 08/28/24 07/11/25 History Thyroid) sodium,potassium,mag sulfates 17.5 See Rx Instructions PO .COMPLEX 07/03/25 Rx gram-3.13 gram-1.6 gram oral soln #354 mL (Suprep Bowel Prep Kit) New Prescriptions to Start Prescriptions: Allergies Allergy/AdvReac Type Severity Reaction Status Date / Time No Known Allergies Allergy Verified 07/11/25 13:00 Exam *Routine HEENT Exam Head: Present normocephalic Eye: Present EOMI and PERRL ENT: Present mucous membranes moist *Routine Neck Exam Neck: Present supple *Routine Respiratory Exam Respiratory: Present CTA bilaterally *Routine Cardiovascular Exam Cardiovascular: Present RRR *Routine Abdominal Exam Abdominal: Present soft and normoactive bowel sounds; Absent tenderness *Routine Rectal Exam Rectal:: deferred *Routine Genitalia Exam Genitalia:: deferred *Routine Extremities Exam Extremities: Absent cyanosis, clubbing or edema *Routine Skin Exam Skin: Present warm; Absent rash *Routine Neurological Exam Neurological: Present alert and oriented X3 Assessment and Plan *Assessment and plan (1) Personal history of adenomatous and serrated colon polyps: Status: Acute Category: Medical Code(s): Z86.0101 - Personal history of adenomatous and serrated colon polyps (2) Family history of colon cancer in father: Status: Acute Category: Medical Code(s): Z80.0 - Family history of malignant neoplasm of digestive organs (3) Screening for colon cancer: Status: Acute Category: Medical Code(s): Z12.11 - Encounter for screening for malignant neoplasm of colon Plan A/P: 1. Personal history of adenomatous colon polyps and family history of colon cancer (father) is the preprocedural diagnosis. The patient will be anesthetized/sedated using MAC sedation. The patient has been seen and examined. Cardiac and lung assessment prior to the examination is stable. Proceed with planned screening/surveillance colonoscopy.
[2025-07-17 11:54] VITALS: BP 109/56; PULSE 60; RESP 18; TEMP 36.6; O2SAT 98; BMI 28.3
[2025-07-17] MEDS: LACTATED RINGERS 1000ML 1,000 ML 50 ML IV (12:11)
--- NOTE | 2025-07-17 12:34 | P.PNANES_ITS ---
[facility] Disclaimer: The information contained in this section may have been updated after the patient was seen, as this information can be updated by other users. Medical History Sleep apnea treated with continuous positive airway pressure (CPAP) Hearing loss Eustachian tube dysfunction Otalgia, right ear Congestion of right ear Allergic rhinitis Valvular heart disease Hypothyroidism Anxiety Seasonal allergies UTI (urinary tract infection) Osteoarthritis HTN (hypertension) Surgical History History of foot surgery History of colonoscopy Hx of tonsillectomy History of bilateral tubal ligation History of bunionectomy of left great toe Family History Other Family history of cancer Social History (Updated 07/17/25 @ 11:55 by Denise Silver RN) Smoking Status: Never smoker second hand exposure: No alcohol intake: current alcohol intake frequency: a few times a week substance use type: denies use current occupational status: retired Travel in the last 8 weeks?: None household members: spouse housing: house 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 current occupational exposures/hazards: No caffeine: No Have you lived/traveled outside US in past 30 days?: No Contact w/someone who lives/traveled outside US past 30 days?: No Exposure to someone with infectious disease in past 14 days?: No Do you have a fever (greater than 100.4 F or 38 C)?: No Have you tested positive for COVID-19?: No Exposed to someone with COVID-19 in past 14 days?: No Do you have a sore throat?: No Do you have a cough?: No Do you have any weakness?: No Are you experiencing any nausea/vomitting?: No Do you have any diarrhea?: No Are you experiencing any unusual bleeding?: No Do you have any muscle aches/pain?: No Do you have any abdominal pain?: No Are you experiencing loss of taste or smell?: No [facility] Anesthesia Checklist Patient Identification Patient Identification: Verbal (Name & ) Structural Data Admitted From: Home Planned Operative Procedure/s: colonoscopy Consent for Planned Operative Procedure(s) Verified: Yes NPO Status Verified Time NPO: 00:00 Additional verifications Anesthesia Reactions: No Airway Assessment Mallampati Score:: Class II C-Spine Mobility Assessed: Yes TMJ Mobility Assessed: Yes Dentition: Good Dentition Neurological Assessment Level of Consciousness: Awake, Alert and Appropriate Anesthesia Plan Anesthesia Risk discussed: Yes Anesthesia Plan: Verified ASA Class: II Anesthesia Type: MAC
--- NOTE | 2025-07-17 12:35 | EXP.HP ---
History of Present Illness *Admission Date: 07/17/25 *History of present illness: Mrs. Wiseman is a 65-year-old female who is here for screening/surveillance colonoscopy secondary to a personal history of adenomatous colon polyps. The patient also reports that her father had an advanced adenomatous polyp or colon cancer in his early 60s requiring colon resection. The patient did have normal colonoscopies in 2000, April 2009 and January 2015. Her last colonoscopy in March 2020 revealed 4 polyps (tubular adenomas x 3 and hyperplastic polyp x 1) which were removed. The patient did report postprandial bowel urgency especially if she went out to eat. She stopped dairy and cheese in the last 4 to 6 weeks and this has resolved. The examination is deemed medically necessary for screening/surveillance colonoscopy. The patient has been seen, interviewed and examined prior to the procedure by both myself and the anesthesia provider. [facility] Disclaimer: The information contained in this section may have been updated after the patient was seen, as this information can be updated by other users. Medical History Sleep apnea treated with continuous positive airway pressure (CPAP) Hearing loss Eustachian tube dysfunction Otalgia, right ear Congestion of right ear Allergic rhinitis Valvular heart disease Hypothyroidism Anxiety Seasonal allergies UTI (urinary tract infection) Osteoarthritis HTN (hypertension) Surgical History History of foot surgery History of colonoscopy Hx of tonsillectomy History of bilateral tubal ligation History of bunionectomy of left great toe Family History Other Family history of cancer Social History (Updated 07/17/25 @ 11:55 by Denise Silver RN) Smoking Status: Never smoker second hand exposure: No alcohol intake: current alcohol intake frequency: a few times a week substance use type: denies use current occupational status: retired Travel in the last 8 weeks?: None household members: spouse housing: house 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 current occupational exposures/hazards: No caffeine: No Have you lived/traveled outside US in past 30 days?: No Contact w/someone who lives/traveled outside US past 30 days?: No Exposure to someone with infectious disease in past 14 days?: No Do you have a fever (greater than 100.4 F or 38 C)?: No Have you tested positive for COVID-19?: No Exposed to someone with COVID-19 in past 14 days?: No Do you have a sore throat?: No Do you have a cough?: No Do you have any weakness?: No Are you experiencing any nausea/vomitting?: No Do you have any diarrhea?: No Are you experiencing any unusual bleeding?: No Do you have any muscle aches/pain?: No Do you have any abdominal pain?: No Are you experiencing loss of taste or smell?: No Other Medical History Have you received the Flu Vaccine for this season: Yes Have you received the Pneumonia Vaccine: No Review of Systems Review of Systems Review of systems (narrative): Negative *Cardiovascular Comments: Negative *Gastrointestinal Comments: Negative *Genitourinary Comments: Negative *Musculoskeletal Comments: Negative *Neurologic Comments: Negative Meds Home Medications and Allergies Home Medications ?Medication ?Instructions ?Recorded ?Confirmed ?Type fluticasone propionate 50 1 spr intranasal DAILY allergies 04/27/20 07/17/25 History mcg/actuation nasal spray,suspension irbesartan 300 mg tablet 300 mg PO DAILY High blood pressure 01/14/21 07/17/25 History dextromethorphan-guaifenesin 30 1 tab PO Q12H PRN Cough 08/28/24 07/17/25 History mg-600 mg tablet extended hr (Mucinex DM) duloxetine 60 mg capsule,delayed 60 mg PO DAILY 08/28/24 07/17/25 History release hydrochlorothiazide 12.5 mg capsule 12.5 mg PO DAILY 08/28/24 07/17/25 History nebivolol 10 mg tablet (Bystolic) 10 mg PO DAILY 08/28/24 07/17/25 History thyroid (pork) 90 mg tablet (YARD BRAKEMAN 90 mg PO DAILY 08/28/24 07/17/25 History Thyroid) sodium,potassium,mag sulfates 17.5 See Rx Instructions PO .COMPLEX 07/03/25 07/17/25 Rx gram-3.13 gram-1.6 gram oral soln #354 mL (Suprep Bowel Prep Kit) New Prescriptions to Start Prescriptions: Allergies Allergy/AdvReac Type Severity Reaction Status Date / Time No Known Allergies Allergy Verified 07/11/25 13:00 Exam Data for Last 24 hours Vital signs and Labs for Last 24 Hours: Temp Pulse Resp BP Pulse Ox O2 Del Method 97.8 F 60 18 109/56 L 98 Room Air 07/17/25 11:54 07/17/25 11:54 07/17/25 11:54 07/17/25 11:54 07/17/25 11:54 07/17/25 11:54 I & O for Last 24 hours: Intake & Output 07/14/25 07/15/25 07/16/25 07/17/25 23:59 23:59 23:59 23:59 Weight 181 lb *Routine HEENT Exam Head: Present normocephalic Eye: Present EOMI and PERRL ENT: Present mucous membranes moist *Routine Neck Exam Neck: Present supple *Routine Respiratory Exam Respiratory: Present CTA bilaterally *Routine Cardiovascular Exam Cardiovascular: Present RRR *Routine Abdominal Exam Abdominal: Present soft and normoactive bowel sounds; Absent tenderness *Routine Rectal Exam Rectal:: deferred *Routine Genitalia Exam Genitalia:: deferred *Routine Extremities Exam Extremities: Absent cyanosis, clubbing or edema *Routine Skin Exam Skin: Present warm; Absent rash *Routine Neurological Exam Neurological: Present alert and oriented X3 Assessment and Plan *Assessment and plan (1) Family history of colon cancer in father: Status: Acute Category: Medical Code(s): Z80.0 - Family history of malignant neoplasm of digestive organs (2) Personal history of adenomatous and serrated colon polyps: Status: Acute Category: Medical Code(s): Z86.0101 - Personal history of adenomatous and serrated colon polyps (3) Screening for colon cancer: Status: Acute Category: Medical Code(s): Z12.11 - Encounter for screening for malignant neoplasm of colon Plan A/P: 1. Personal history of adenomatous colon polyps and family history of colon cancer is the preprocedural diagnosis. The patient will be anesthetized/sedated using MAC sedation. The patient has been seen and examined. Cardiac and lung assessment prior to the examination is stable. Proceed with planned screening/surveillance colonoscopy.
--- NOTE | 2025-07-17 12:43 | HMH.PROCNOTE ---
[facility] Procedure Note Date: 07/17/25 Time: 12:55 Procedure Note:: Colonoscopy Procedure Report: Colonoscopy Endoscopist: Azar Alberto II, MD Referring physician: Abebe Siegel MD Date of Procedure: July 17, 2025 Equipment: Olympus [id number] adult colonoscope Sedation: MAC sedation Indication: Mrs. Wismean is a 65-year-old female who is here for screening/surveillance colonoscopy secondary to a personal history of adenomatous colon polyps. The patient also reports that her father had an advanced adenomatous polyp or colon cancer in his early 60s requiring colon resection. The patient did have normal colonoscopies in 2000, April 2009 and January 2015. Her last colonoscopy in March 2020 revealed 4 polyps (tubular adenomas x 3 and hyperplastic polyp x 1) which were removed. The patient did report postprandial bowel urgency especially if she went out to eat. She stopped dairy and cheese in the last 4 to 6 weeks and this has resolved. The examination is deemed medically necessary for screening/surveillance colonoscopy. Procedure: Prior to the procedure, a history and physical exam was performed, and patient's medications and allergies were reviewed. The risks, benefits and alternatives of the sedation and procedure were discussed with the patient. All questions were answered and informed consent was obtained. The patient was brought to the procedure room. Patient identification and proposed procedure were verified by the physician and the nurse. The patient was placed in a left lateral decubitus position and the scope was passed under direct vision. Throughout the procedure, the patient's blood pressure, pulse, and oxygen saturations were monitored continuously. The colonoscopy was accomplished without difficulty. The patient tolerated the procedure well. Findings: On digital rectal examination there was normal rectal tone. There were no external hemorrhoids. The colonoscope was introduced through the anal canal to the rectum and advanced to the cecum. The ileocecal valve and appendiceal orifice were identified. The scope was advanced a short distance into the ileum which appeared grossly normal. The scope was then withdrawn into the colon. The cecum, ascending, transverse, descending, sigmoid and rectum were grossly normal. There were no mucosal abnormalities identified. Upon retroflexion within the rectum there were grade 1 internal hemorrhoids. The preparation was excellent throughout with [place] Preparation Score of 9. The cecal time was 12 minutes. Impression: 1. Normal colonoscopy with intubation of the terminal ileum Plan: I will discuss the findings with the patient and family.
[2025-07-17 12:56] VITALS: BP 82/43; PULSE 67; RESP 18; TEMP 36.5; O2SAT 97
[2025-07-17 13:06] VITALS: BP 103/47; PULSE 64; RESP 18; TEMP 36.5; O2SAT 98
[2025-07-17 13:16] VITALS: BP 109/54; PULSE 54; RESP 18; TEMP 36.5; O2SAT 97
[2025-07-17 13:26] VITALS: BP 110/59; PULSE 55; RESP 18; TEMP 36.5; O2SAT 97
== END 2025-07-17 13:33 | disposition home or self-care (01) ==
PROVIDERS: PCP Family Medicine; Visit Provider Internal Medicine Gastroenterology
PROC: 0DJD8ZZ Inspection of Lower Intestinal Tract, Via Natural or Artificial Opening Endoscopic (ICD-10-PCS; CPT 45378; principal; 2025-07-17 13:00)
DX: Z12.11 Encounter for screening for malignant neoplasm of colon (principal); K64.0 First degree hemorrhoids; I10 Essential (primary) hypertension; F41.9 Anxiety disorder, unspecified; Z80.0 Family history of malignant neoplasm of digestive organs; Z86.0101 Personal history of adenomatous and serrated colon polyps
CPT/HCPCS: 45378; J2003; J2704; J7120

== ENCOUNTER 2025-08-08 15:25 | Outpatient (CLI) | payer MEDICARE, SELFPAY ==
--- NOTE | 2025-08-08 15:30 | CT_ITS ---
FINAL REPORT TECHNIQUE: Thin section axial images were obtained through the paranasal sinuses without contrast. Reconstruction images were obtained from the axial data. Exam was performed using dose reduction techniques such as automated exposure control, adjustment of the mA and kV according to patient size, and use of iterative reconstruction technique. CLINICAL HISTORY: difficulty moving air through the right nares wears cpap COMPARISON: None FINDINGS: The paranasal sinuses are clear. There is no air-fluid level or significant mucosal thickening. The maxillary infundibulum are patent bilaterally. There is mild right septal deviation. There is no acute osseous abnormality. The mastoid air cells are clear. Remaining soft tissues are unremarkable. IMPRESSION: No evidence of acute sinusitis. Reviewed, Interpreted and Dictated by Zaina Seymour MD Transcribed by Maribell Delgado Authenticated and [facility]
== END 2025-08-08 23:59 | disposition home or self-care (01) ==
LOC: RAD 15:26
PROVIDERS: PCP Family Medicine; Visit Provider Nurse Practitioner
DX: J32.9 Chronic sinusitis, unspecified (principal); J34.2 Deviated nasal septum
CPT/HCPCS: 70486

== ENCOUNTER 2025-08-25 10:34 | Outpatient (CLI) | payer MEDICARE, SELFPAY ==
--- OUTSIDE RECORDS SUMMARY | 2024-10-01 05:30 | XMS_ITS ---
Author Organization [facility] Address [address] [place] [id number] Care Team Providers Care Business Line Manager Name Role Phone Abebe Siegel Primary Care Provider [phone] Yola Caldwell Unavailable [phone] Allergies No Known Allergies Results Component Value Reference Range Notes Rapid Strep- Inhouse Reviewed date:10/01/2024 10:22:46 AM Interpretation:pos Performing Lab: Notes/Report: pos strep test pos P-TSH Reviewed date:10/02/2024 11:22:14 AM Interpretation:1.70 Performing Lab: Notes/Report: CLIA: [id number] Dany Kam MD, [employer] [address] [place] [address] , [address], [place] [address] Test performed by [employer], [employer] TSH 1.70 0.43-5.25 mU/L REASON FOR VISIT laryngitis Medications Medication SIG (Take, Route, Frequency, Duration) Notes Start Date End Date Status Amoxicillin 500 MG 1 capsule Orally royal ry 8 hrs; Duration: 10 day(s) 10/01/2024 Active Irbesartan 300 MG TAKE 1 TABLET BY MAURICE TH ONCE DAILY; Duration: 90 Active SORTING MACHINE OPERATOR Thyroid 90 MG 1 tablet on an empty stomach Orally Once a day; Duration: 90 days 06/11/2024 Active hydroCHLOROthiazide 12.5 MG TAKE 1 CAPSU LE BY MOUTH ONCE DAILY; Duration: 30 Active Triamcinolone Acetonide 0.1 % 1 applicat ion Externally Twice a day 06/11/2024 Active Reclast 5 MG/100ML 5 mg intravenously once 021 Active Xyzal Allergy 24HR 5 MG 1 tab(s) orally once a day (in the evening); Duration: 90 days Active DULoxetine HCl 60 MG 1 capsule Orally On ce a day; Duration: 90 days Active Nebivolol HCl 10 MG 1 tablet Orally Once a day; Duration: 90 days Active Vital Signs Blood pressure systolic 110 mm Hg 10/01/20 24 Blood pressure diastolic 70 mm Hg 024 Heart Rate 54 /min 10/01/2024 Height 66 in 10/01/2024 Weight 171.2 lbs 10/01/2024 BMI 27.63 kg/m2 10/01/2024 Encounters Encounter Location Date Provider Diagnosis [facility] [address] [place] [id number] 10/01/2024 Yola Caldwell Hypothyroidism E03.9 and Strep pharyngitis J02.0 Assessments Encounter Date Diagnosis (ICD Code) Assessment Notes Treatment Notes Treatment Clinical Notes Section Notes 10/01/2024 Hypothyroidism (ICD-10 - E03.9) 10/01/2024 Strep pharyngitis (ICD-10 - J02.0) gargles q2h while awake with hot salt water, fluids, rest, supportive measures for fever/symptom relief Plan Of Treatment Medication Medication Name Sig Start Date Stop Date Notes Amoxicillin 500 MG 1 capsule Orally royal ry 8 hrs; Duration: 10 day(s) 10/01/2024 Treatment Notes Assessment Notes Strep pharyngitis gargles q2h while aw priyanka with hot salt water, fluids, rest, supportive measures for fever/symptom relief Next Appt Details Follow Up: prn, Reason: Progress Notes * LUCIANO MAYBERRY ANNDOB:[birth year] (65 yo F)Acc No.[id number]:10/01/2024 Progress Notes Patient: LUCIANO MCMAHAN ANN Provider: CED Saucedo :1960 A ge:64 Y S ex:Female Date:10/01/2024 Address:[address] [place] [address] [id number] Pcp:Abebe Siegel Subjective: * Chief Complaints: * 1 . Laryngitis. * HPI: E NT/respiratory: 64 year old female presents with c/o sore throat P t is here today for laringitis. c/o cough. c/o post nasal drainage. c/o headache. Denies : Fever. D enies : smoking. hoarse; eating and drinking OK. * ROS: D ERMATOLOGY: no R alex. n o H anna marie. G ASTROENTEROLOGY: no N ausea. n o V omiting. n o D iarrhea.? U ROLOGY: no D ifficulty urinating. n o B lood in urine. 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 * Surgical History: B ilateral Tubal Ligation , Tonsillectomy , LT Foot , Umbilical Hernia Repair , Colonoscopy 2000,2008,2014,2019. * Hospitalization/Major Diagno stic Procedure: Marcelle allenjosy Pol[facility]- [facility] 10/04/2011. * Family History: F ather: alive 89 yrs, Colon cancer in early 60. M other: alive 90 yrs. P aternal Grand Father: . P aternal Grand Mother: . M aternal Grand Father: . M aternal Grand Mother: . 1 son(s) , 1 daughter(s) . . * Social History: C URRENT TOBACCO USE S moking Status: Patient does NOT smoke. C affeine: yes, frequency:tea. Exercise: no. Home smoke detector use: yes. Marital Status: . Occupation: [employer]. Past smoking status: no. Alcohol: Type: , Frequency:socially ,Years: , Determination:, occasional. * Medications: T aking Xyzal Allergy 24HR 5 MG Tablet 1 tab(s) orally once a day (in the evening) , Taking Nebivolol HCl 10 MG Tablet 1 tablet Orally Once a day , Taking DULoxetine HCl 60 MG Capsule Delayed Release Particles 1 capsule Orally Once a day , Taking Reclast 5 MG/100ML Solution 5 mg intravenously once , Taking SORTING MACHINE OPERATOR Thyroid 90 MG Tablet 1 tablet on an empty stomach Orally Once a day , Taking Triamcinolone Acetonide 0.1 % Cream 1 application Externally Twice a day , Taking hydroCHLOROthiazide 12.5 MG Capsule TAKE 1 CAPSULE BY MOUTH ONCE DAILY , Taking Irbesartan 300 MG Tablet TAKE 1 TABLET BY MOUTH ONCE DAILY , Discontinued Cefuroxime Axetil 500 MG Tablet 1 tablet Orally every 12 hrs , Medication List reviewed and reconciled with the patient * Allergies: N .K.D.A. Objective: * Vitals: W t:171.2, Temp:98.8, BP:110/70, HR:54, O2 Sat:93% on RA, Nurse:OMER, Ht: 66, BMI:27.63. * Examination: E NT/Respiratory: General Appearance: well nourished and hydrated, NAD, alert. E yes: sclera and conjunctiva clear. E ars: auditory canals normal bilaterally, tympanic membranes normal bilaterally. N ose : nares patent. O ral cavity : erythema without exudate on pharynx. N larisa : supple, no cervical lymphadenopathy. H eart : RRR. L ungs: CTAB A&P. Assessment: * Assessment: 1. H ypothyroidism - E03.9 (Primary) 2 . S trep pharyngitis - J02.0 ? Plan: * Treatment: Value Reference Range T SH 1.70 0.43-5.25 - mU/L * Yola Caldwell 10/02/2024 11:19:51 AM >left Yola [place] 10/02/2024 11:22:01 AM > I spoke with pt and reported results 2.?Strep pharyngitis? Start Amoxicillin Capsule, 500 MG, 1 capsule, Orally, every 8 hrs, 10 day(s), 30 Capsule.? Notes: gargles q2h while awake with hot salt water, fluids, rest, supportive measures for fever/symptom relief?? * Labs: * L ab: Rapid Strep- Inhouse (Collection Date & Time - 10/01/2024) p os Value Reference Range s trep test pos * Ayesha Montez 10/01/2024 10:03 :20 AM > , Provider reviewed results while patient in office.Yola Caldwell 10/01/2024 10:22:43 AM > * Procedure Codes: 9 4760 [place], [address] STREP A ASSAY W/OPTIC, Modifiers: QW * Follow Up: p rn * Images: Billing Information: * Visit Code: 34895 Office Visit, Est Pt., Level 3. * Procedure Codes: [address] [place]. [address] STREP A ASSAY W/OPTIC. Modifiers: QW * Electronic signature of Malika Caldwell , COURTESY VAN DRIVER on 08/25/2025 at 10:46 AM EDT Sign off status: Pending * Provider: CED Saucedo Date: 12/02/2023 Generated for Printi ng/Faxing/eTransmitting on: 10:46 AM EDT History and Physical Notes * HPI (History of Present Illness) Category Sub-Category Detail Notes Category Not es ENT/respiratory sore throat Pt is here today for david ngitis hoarse; eating and drinking OK cough Fever post nasal drainage headache smoking Examination Category Sub-Category Detail Notes Category Not es ENT/Respiratory Oral cavity : erythema without exudate on pharynx Ears: auditory canals norm al bilaterally, tympanic membranes normal bilaterally Neck : supple, no cervical lymphadenopathy Heart : RRR Lungs: CTAB A&P General Appearance: well nourished and h ydrated, NAD, alert Nose : nares patent Eyes: sclera and conjuncti va clear
--- OUTSIDE RECORDS SUMMARY | 2024-12-30 09:45 | XMS_ITS ---
Author Organization [facility] Address [address] [facility] [address] [facility] [address] [place] [id number] Care Team Providers Care Audograph Operator Name Role Phone Abebe Siegel Primary Care Provider REASON FOR VISIT TB Test Medications Medication SIG (Take, Route, Frequency, Duration) Notes Start Date End Date Status hydroCHLOROthiazide 12.5 MG TAKE 1 CAPSU LE BY MOUTH ONCE DAILY; Duration: 30 Active DULoxetine HCl 60 MG 1 capsule Orally On ce a day; Duration: 90 days Active Nebivolol HCl 10 MG 1 tablet Orally Once a day; Duration: 90 days Active SQL ENGINEER Thyroid 90 MG TAKE 1 TABLET BY MAURICE TH ONCE DAILY ON AN EMPTY STOMACH; Duration: 90 Active Scopolamine 1 MG/3DAYS 1 patch to skin b ehind the ear as needed Transdermal 10/14/2024 Active Reclast 5 MG/100ML 5 mg intravenously once 021 Active Xyzal Allergy 24HR 5 MG 1 tab(s) orally once a day (in the evening); Duration: 90 days Active Irbesartan 300 MG TAKE 1 TABLET BY MAURICE TH ONCE DAILY; Duration: 90 Active Triamcinolone Acetonide 0.1 % 1 applicat ion Externally Twice a day 06/11/2024 Active Immunizations Vaccine Route Administration Date Status Comme nts ppd ID Intradermal 12/30/2024 Administered Encounters Encounter Location Date Provider Diagnosis [facility] [address] [facility] [address] [place] [phone] 12/30/2024 Abebe Siegel PPD screening test Z11.1 Assessments Encounter Date Diagnosis (ICD Code) Assessment Notes Treatment Notes Treatment Clinical Notes Section Notes 12/30/2024 PPD screening test (ICD-10 - Z11.1) Plan Of Treatment No Information Progress Notes * LUCIANO MAYBERRY ANNDOB:[birth year] (65 yo F)Acc No.[id number]:12/30/2024 Patient: LUCIANO MCMAHAN Provider: Tamiko Siegel M.D. :1960 A ge:64 Y S ex:Female Date:12/30/2024 Address:[address] [place] [address] [id number] Subjective: * Chief Complaints: * 1 . TB Test. * Medical History: * Medications: T aking Xyzal Allergy 24HR 5 MG Tablet 1 tab(s) orally once a day (in the evening) , Taking Reclast 5 MG/100ML Solution 5 mg intravenously once , Taking Triamcinolone Acetonide 0.1 % Cream 1 application Externally Twice a day , Taking Irbesartan 300 MG Tablet TAKE 1 TABLET BY MOUTH ONCE DAILY , Taking Scopolamine 1 MG/3DAYS Patch 72 Hour 1 patch to skin behind the ear as needed Transdermal , Taking hydroCHLOROthiazide 12.5 MG Capsule TAKE 1 CAPSULE BY MOUTH ONCE DAILY , Taking Nebivolol HCl 10 MG Tablet 1 tablet Orally Once a day , Taking DULoxetine HCl 60 MG Capsule Delayed Release Particles 1 capsule Orally Once a day , Taking SQL ENGINEER Thyroid 90 MG Tablet TAKE 1 TABLET BY MOUTH ONCE DAILY ON AN EMPTY STOMACH , Discontinued Amoxicillin 500 MG Capsule 1 capsule Orally every 8 hrs , Medication List reviewed and reconciled with the patient Objective: * Vitals: Assessment: * Assessment: 1. P PD screening test - Z11.1 (Primary) Plan: * Treatment: * Immunizations: ppd : 0.1 mL (Route: Intradermal) given by Diana Sheikh on Left Lower Forearm (PPD screening test) * Procedure Codes: 8 6580 tuberculin (ppd) * Images: Billing Information: * Visit Code: * Procedure Codes: 11916 tuberculin (ppd). * Electronic signature of Kaitlin Siegel MD on 08/25/2025 at 10:47 AM EDT Sign off status: Pending * Provider: Tamiko Siegel M.D. Date: 0 12/30/2024 Generated for Toro bocanegra/Maryjane/Doc on: 1 10:47 AM EDT
--- OUTSIDE RECORDS SUMMARY | 2025-01-01 11:25 | XMS_ITS ---
Author Organization [facility] Address [address] [facility] [address] [place] [phone] Care Team Providers Care Blanking Press Operator Name Role Phone Abebe Siegel Primary Care Provider [phone] REASON FOR VISIT read TB test Encounters Encounter Location Date Provider Diagnosis [facility] [address] [place] [phone] 01/01/2025 Abebe Siegel Plan Of Treatment No Information Progress Notes * JEFELUCIANO NAIR ANNDOB:[birth year] (65 yo F)Acc No.[id number]:01/01/2025 Patient: LUCIANO MCMAHAN ANN Provider: Tamiko Siegel M.D. :1960 A ge:64 Y S ex:Female Date:01/01/2025 Address:[address] [place] [address] [id number] Subjective: * Chief Complaints: * 1 . read TB test. * Medical History: Objective: * Vitals: Assessment: Plan: * Treatment: * Images: Billing Information: * Visit Code: * Procedure Codes: * Electronic signature of Kaitlin Siegel MD on 08/25/2025 at 10:46 AM EDT Sign off status: Pending * Provider: Tamiko Siegel M.D. Date: 0 01/01/2025 Generated for Toro bocanegra/Maryjane/Kimberlyitting on: 1 10:46 AM EDT
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
--- OUTSIDE RECORDS SUMMARY | 2025-03-10 10:15 | XMS_ITS ---
[facility] Address [address] [place] [id number] Care Team Providers Care Entry Level Truck Driver Name Role Phone Abebe Siegel Primary Care Provider Yola Caldwell Unavailable [phone] Allergies No Known Allergies Results Component Value Reference Range Notes Urinalysis - Inhouse Reviewed date:03/11/2025 09:29:24 AM Interpretation: Performing Lab: Notes/Report: Color/Clarity Yellow clear Leuk Neg Nitrite Neg Urobili 3.2 Protein Neg pH 6.0 Blood Neg Sp. Gr. 1.015 Ketone Neg Bili Neg Gluc Neg REASON FOR VISIT pain in right side & back Medications Medication SIG (Take, Route, Frequency, Duration) Notes Start Date End Date Status Medrol 4 MG as directed orally daily; Duration: 6 days 03/10/2025 Active Silvadene 1 % 1 application Externally Once a day 02/19/2025 Active hydroCHLOROthiazide 12.5 MG 1 cap(s) Ora lly Once a day; Duration: 90 days Active Irbesartan 300 MG TAKE 1 TABLET BY MAURICE ONCE DAILY; Duration: 90 Active GROUP DIRECTOR EXPERIENCE Thyroid 90 MG TAKE 1 TABLET BY MAURICE ONCE DAILY ON AN EMPTY STOMACH; Duration: 90 Active DULoxetine HCl 60 MG 1 capsule Orally On ce a day; Duration: 90 days Active Nebivolol HCl 10 MG 1 tablet Orally Once a day; Duration: 90 days Active Scopolamine 1 MG/3DAYS 1 patch to skin b ehind the ear as needed Transdermal 10/14/2024 Active Triamcinolone Acetonide 0.1 % 1 applicat ion Externally Twice a day 06/11/2024 Active Reclast 5 MG/100ML 5 mg intravenously once 021 Active Cyclobenzaprine HCl 5 MG 1 -2 tablet Orally TID Active Xyzal Allergy 24HR 5 MG 1 tab(s) orally once a day (in the evening); Duration: 90 days Active Vital Signs Blood pressure systolic 110 mm Hg 03/10/20 25 Blood pressure diastolic 70 mm Hg 025 Heart Rate 71 /min 03/10/2025 Height 66 in 03/10/2025 Weight 178 lbs 03/10/2025 BMI 28.73 kg/m2 03/10/2025 Encounters Encounter Location Date Provider Diagnosis [facility] [address] [place] [phone] 03/10/2025 Yola Caldwell Acute right-sided lo w back pain without sciatica M54.50 Assessments Encounter Date Diagnosis (ICD Code) Assessment Notes Treatment Notes Treatment Clinical Notes Section Notes 03/10/2025 Acute right-sided low back pain without sciatica (ICD-10 - M54.50) heat/ice application; no lifting/pushin g/pulling; OTC NSAID creams and massage Plan Of Treatment Medication Medication Name Sig Start Date Stop Date Notes Medrol 4 MG as directed orally d aily; Duration: 6 days 03/10/2025 Cyclobenzaprine HCl 5 MG 1 -2 tablet Orally TID 03/10/2025 Treatment Notes Assessment Notes Acute right-sided low back p ain without sciatica heat/ice application; no lifting/pushing/pulling; OTC NSAID creams and massage Next Appt Details Follow Up: prn, Reason: Progress Notes * LUCIANO MAYBERRY ANNDOB:[birth year] (65 yo F)Acc No.[id number]:03/10/2025 Progress Notes Patient: LUCIANO MCMAHAN Provider: CED Saucedo :1960 A ge:65 Y S ex:Female Date:03/10/2025 Address:[address] [place] [address] , [place], [id number] Pcp:Abebe Siegel Subjective: * Chief Complaints: * 1 . Pain in right side & back. * HPI: Michael owdaiana back: 65 year old female presents with c/o Low Back Pain P t sts she has pain in her lower back that goes all the way across and sts it goes to the front as well. Pt sts she has been wearing a boot on her foot and is unsure if the pain could be from her wearing the boot. Pt sts the pain is worse in her rt lower back. Pt sts she has taken 2 alleve and 4 ibprofen yesterday and sts it did it help any. Pt sts the pain started 3-4 days ago. * ROS: D ERMATOLOGY: no R alex. n o H anna marie. G ASTROENTEROLOGY: no N ausea. n o V omiting. n o D iarrhea.? U ROLOGY: no D ifficulty urinating. n o B lood in urine. 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 * Surgical History: B ilateral Tubal Ligation , Tonsillectomy , LT Foot , Umbilical Hernia Repair , Colonoscopy 2000,2008,2014,2019. * Hospitalization/Major Diagno stic Procedure: Marcelle Cuellar- [facility] ER 10/04/2011. * Family History: F [...] detector use: yes. Marital Status: . 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 Past smoking status: no. Alcohol: Type: , [...] capsule Orally Once a day , Taking GROUP DIRECTOR EXPERIENCE Thyroid 90 MG Tablet TAKE 1 TABLET BY MOUTH ONCE DAILY ON AN EMPTY STOMACH , Taking Irbesartan 300 MG Tablet TAKE 1 TABLET BY MOUTH ONCE DAILY , Taking hydroCHLOROthiazide 12.5 MG Capsule 1 cap(s) Orally Once a day , Taking Silvadene 1 % Cream 1 application Externally Once a day , Medication List reviewed and reconciled with the patient * Allergies: N .K.D.A. Objective: * Vitals: W t: 178, Temp: 98.6, BP: 110/70, HR: 71, Nurse: thor, Ht: 66, BMI:28.73. * Examination: G eneral Examination: General Appearance: N AD , appears healthy , alert. H eart: R RR. L ungs: c lear to auscultation bilaterally. B ack: m ild tenderness.? L ower back: Palpation: p araspinal tenderness right and left , no vertebral spine tenderness. S traight leg raising test: n egative bilaterally. R eflexes:?bilaterally symmetrical , 1+. G ait: n ormal. R kg of motion: n ormal. ? Assessment: * Assessment: 1. A cute right-sided low back pain without sciatica - M54.50 (Primary) Plan: * Treatment: Value Reference Range C olor/Clarity Yellow clear * L euk Neg * N itrite Neg * U robili 3.2 * P rotein Neg * p H 6.0 * B lood Neg * S p. Gr. 1.015 * K etone Neg * B campos Neg * G jailene Neg * Brenda Will 03/10/2025 05 :56:36 PM >Yola [place] 03/11/2025 09:29:21 AM > Notes: heat/ice application; no lifting/pushing/pulling; OTC NSAID creams and massage?? * Procedure Codes: G 2211 Complex e/[place], [address] Urinalysis, no micro * Follow Up: p rn * Images: Billing Information: * Visit Code: 09721 Office Visit, Est Pt., Level 3. * Procedure Codes: G2211 Complex e/[place]. [address] Urinalysis, no micro. * Electronic signature of Malika rayasenthil Cal[place] APRN on 08/25/2025 at 10:46 AM EDT Sign off status: Pending * Provider: CED Saucedo Date: 0 03/10/2025 Generated for Toro bocanegra/Maryjane/Michellesmitting on: 1 10:46 AM EDT History and Physical Notes * HPI (History of Present Illness) Category Sub-Category Detail Notes Category Not es Lower back Low Back Pain Pt sts she has p ain in her lower back that goes all the way across and sts it goes to the front as well. Pt sts she has been wearing a boot on her foot and is unsure if the pain could be from her wearing the boot. Pt sts the pain is worse in her rt lower back. Pt sts she has taken 2 alleve and 4 ibprofen yesterday and sts it did it help any. Pt sts the pain started 3-4 days ago Examination Category Sub-Category Detail Notes Category Not es General Examination Heart: RRR Lungs: clear to auscultatio n bilaterally General Appearance: NAD , appears health y , alert Back: mild tenderness Lower back Straight leg raising test: negative bilat erally Reflexes: bilaterally symmetri matt , 1+ Gait: normal Palpation: paraspinal tendernes s right and left , no vertebral spine tenderness Range of motion: normal
--- OUTSIDE RECORDS SUMMARY | 2025-04-10 06:45 | XMS_ITS ---
[facility] Address [address] [place] [id number] Care Team Providers Care Cassandra Architect Name Role Phone Abebe Siegel Primary Care Provider [phone] Allergies No Known Allergies REASON FOR VISIT medicine Medications Medication SIG (Take, Route, Frequency, Duration) Notes Start Date End Date Status TRAVEL SERVICE CONSULTANT Thyroid 90 MG 1 tablet on an [...] disorder with mixed anxiety and depressed mood ([id number]) Adjustment disorder with mixed anxiety and depressed mood (F43.23) Active confirmed Vital Signs Blood pressure systolic 118 mm Hg 04/10/20 25 Blood pressure diastolic 70 mm Hg 025 Heart Rate 62 /min 04/10/2025 Height 66 in 04/10/2025 Weight 178 lbs 04/10/2025 BMI 28.73 kg/m2 04/10/2025 Encounters Encounter Location Date Provider Diagnosis [facility] [address] [place] [phone] 04/10/2025 Abebe Siegel Adjustment disorder with mixed [...] Appt Details Follow Up: 6 Weeks, Reason: Progress Notes * LUCIANO MAYBERRY ANNDOB:[birth year] (65 yo F)Acc No.[id number]:04/10/2025 Progress Notes Patient: LUCIANO MCMAHAN ANN Provider: Tamiko Siegel M.D. 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 * Surgical History: B ilateral Tubal Ligation , Tonsillectomy , LT Foot , Umbilical Hernia Repair , Colonoscopy 2000,2008,2014,2019. * Hospitalization/Major Diagno stic Procedure: Marcelle allenjosy Polo- [facility] ER 10/04/2011. * Family History: F [...] detector use: yes. Marital Status: . 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 Past smoking status: no. Alcohol: Type: , [...] cap(s) Orally Once a day , Taking TRAVEL SERVICE CONSULTANT Thyroid 90 MG Tablet 1 tablet on [...] sleep apnea) - G47.33 3 . B [place] 28.0-28.9,adult - Z68.28 Plan: * Treatment: 2. [...] * Images: Billing Information: * Visit Code: 26219 Office Visit, Est Pt., Level 3. * [...] M.D. Date: 0 04/10/2025 Generated for Toro bocanegra/Maryjane/eTransmitting on: 1 10:46 AM EDT History and [...]
--- OUTSIDE RECORDS SUMMARY | 2025-05-23 06:15 | XMS_ITS ---
Author Organization [facility] Address [address] [place] [phone] Care Team Providers Care Joy Operator Helper Name Role Phone Abebe Siegel Primary Care Provider Allergies No Known Allergies Results Component Value Reference Range Notes P-Comprehensive Metabolic Pa makayla (CMP) Reviewed date:05/27/2025 09:20:07 AM Interpretation:glu 109 Performing Lab: Notes/Report: Test performed by [facility], [address] , [address], [place] [address] Dany Kam MD, Journeyman Electrician CLIA: [id number] Sodium 143 135-145 mmol/L Potassium 4.6 3.5-5.3 [...] Interpretation:0.85 Performing Lab: Notes/Report: Test performed by [facility] [address] [place] [address] [place] [address] Dany Kam MD, Journeyman Electrician CLIA: [id number] Thyroxine Free (free T4) 0.85 0.86-1.76 ng/dL P-Lipid Panel Reviewed date:05/27/2025 09:20:07 AM Interpretation:Chol 221, Chol/HDL 4.60, Non-HDL 173, LDL 146 Performing Lab: Notes/Report: Test performed by [facility] [address] [place] [address] Eliseo Garcia , [place] [address] Dany Kam MD, Journeyman Electrician CLIA: [id number] Cholesterol 221 <200 mg/dL Triglycerides 135 <150 [...] Interpretation:Normal Performing Lab: Notes/Report: Test performed by [facility] [address] [place] [address] , [place] [address] Dany Kam MD, Journeyman Electrician CLIA: [id number] TSH 3.31 0.43-5.25 mU/L P-Microalbumin/Creatinine, R andom Urine Sample Reviewed date:05/27/2025 09:20:07 AM Interpretation:Normal Performing Lab: Notes/Report: Test performed by [facility] [address] [place] [address] , [address] , [place] [address] Dany Kam MD, Journeyman Electrician CLIA: [id number] Albumin/Creatinine Ratio, Urine 3 0-30 ug/m g Microalbumin, Urine, Random 0.3 Creatinine, Urine 89.7 P-Vitamin D 25-Hydroxy Reviewed date:05/27/2025 09:20:07 AM Interpretation:49.4 Performing Lab: Notes/Report: Test performed by [facility] [address] [place] [address] , [place] [address] Dany Kam MD, Journeyman Electrician CLIA: [id number] Vitamin D 25-Hydroxy 49.4 30.0-100.0 ng/mL Interpretation [...] - 6-16 as directed ANALI 04/10 Active PRINCIPAL STATISTICAL SCIENTIST Thyroid 90 MG 1 tablet on an empty stomach Orally Once a day; Duration: 90 days Active Vital Signs Blood pressure systolic 120 mm Hg 05/23/20 25 Blood pressure diastolic 70 mm Hg 025 Heart Rate 78 /min 05/23/2025 Height 66 in 05/23/2025 Weight 180.8 lbs 05/23/2025 BMI 29.18 kg/m2 05/23/2025 Encounters Encounter [facility] Date [facility] [address] [phone] 05/23/2025 Abebe Siegel HTN (hypertension) I 10 [...] Appt Details Follow Up: 6 Months, Reason: Progress Notes * LUCIANO MAYBERRY ANNDOB:[birth year] (65 yo F)Acc No.[id number]:05/23/2025 Progress Notes Patient: LUCIANO MCMAHAN ANN Provider: Tamiko Siegel M.D. :1960 A ge:65 Y S ex:Female Date:05/23/2025 Address:[address] [place] [address] [place] [id number] Subjective: * Chief Complaints: * 1 . 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 Thomas, Osteopenia, 2010, Osteoporosis, 2017, Allergic Rhinitis, Sleep apnea. * Surgical History: B ilateral Tubal Ligation , Tonsillectomy , LT Foot , Umbilical Hernia Repair , Colonoscopy 2000,2008,2014,2019. * Hospitalization/Major Diagno stic Procedure: Marcelle arzate Stone- [facility] ER 10/04/2011. * Family History: F [...] detector use: yes. Marital Status: . 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 Past smoking status: no. Alcohol: Type: [...] cap(s) Orally Once a day , Taking PRINCIPAL STATISTICAL SCIENTIST Thyroid 90 MG Tablet 1 tablet on [...] contact : delroy thomas. M ood : p leasant. H eart: R SR. L ungs: bipin lear to auscultation. Assessment: * Assessment: 1. H [place] (hypertension) - I10 (Primary) 2 . H ypothyroidism - E03.9 ? 3 . A ge related osteoporosis - M81.0 4 . H ypertriglyceridemia - E78.1 5 . M ixed hyperlipidemia - E78.2 6 . A djustment disorder with mixed anxiety and depressed mood - F43.23 7 . B OH 29.0-29.9,adult - Z68.29 Plan: * Treatment: Value [...] * Images: Billing Information: * Visit Code: 16551 Office Visit, Est Pt., Level 4. * [...] M.D. Date: 0 05/23/2025 Generated for Toro bocanegra/Maryjane/Ochoaransmitting on: 1 10:47 AM EDT History and Physical Notes * [...]
--- OUTSIDE RECORDS SUMMARY | 2025-06-24 07:45 | XMS_ITS ---
Author Organization [facility] Address [address] [place] [id number] Care Team Providers Care Landfill Attendant Name Role Phone Abebe Siegel Primary Care Provider Allergies No Known Allergies Results Component Value Reference Range Notes CBC Fingerstick (in house) Reviewed date:06/24/2025 04:08:24 PM Interpretation: Performing Lab: Notes/Report: wbc 8.0 3.5 - 10 lym 22.9 15 - 50 mid 5.7 2 - 15 gran 71.4 35 - 80 rbc 4.22 3.5 - 5.5 hgb 12.8 11.5 - 16.5 hct 39.1 35 - 55 mcv 92.6 75 - 100 mch 30.5 25 - 35 mchc 32.9 31 - 38 plat 270 100 - 400 Covid test (in house) Reviewed date:06/24/2025 04:08:32 PM Interpretation: Performing Lab: Notes/Report: Result: Neg REASON FOR VISIT sick Medications Medication SIG (Take, Route, Frequency, Duration) Notes Start Date End Date Status DULoxetine HCl 60 MG 2 capsule Orally Once a day; Duration: 90 days Active CPAP machine and supplies - 6-16 as directed ANALI 04/10/2025 Active Nebivolol HCl 10 MG TAKE 1 TABLET BY MOUTH ONCE DAILY; Duration: 90 Active Reclast 5 MG/100ML 5 mg intravenously once M81.0 Age Related Osteoporosis 04/20/2021 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 120 MG 1 tablet on an empty stomach Orally Once a day; Duration: 90 days 05/28/2025 Active Amoxicillin 875 MG 1 tablet Orally Twice a day; Duration: 5 days 06/24/2025 Active Promethazine-DM 6.25-15 MG/5ML 5 mL as needed Orally every 6 hrs 06/24/2025 Active Benzonatate 200 MG 1 capsule as needed Orally Three times a day 06/24/2025 Active Irbesartan 300 MG TAKE 1 TABLET BY MOUTH ONCE DAILY; Duration: 90 Active hydroCHLOROthiazide 12.5 MG 1 cap(s) Orally Once a day; Duration: 90 days Active Xyzal Allergy 24HR 5 MG 1 tab(s) orally once a day (in the evening); Duration: 90 days Active Triamcinolone Acetonide 0.1 % 1 application Externally Twice a day 06/11/2024 Active Scopolamine 1 MG/3DAYS 1 patch to skin behind the ear as needed Transdermal 10/14/2024 Active Vital Signs Blood pressure systolic 120 mm Hg 06/24/20 25 Blood pressure diastolic 70 mm Hg 025 Heart Rate 79 /min 06/24/2025 Height 66 in 06/24/2025 Weight 181.0 lbs 06/24/2025 BMI 29.21 kg/m2 06/24/2025 Encounters Encounter Location Date Provider Diagnosis [facility] [address] [place] [id number] 06/24/2025 Abebe Siegel Acute URI J06.9 Assessments Encounter Date Diagnosis (ICD Code) Assessment Notes Treatment Notes Treatment Clinical Notes Section Notes 06/24/2025 Acute URI (ICD-10 - J06.9) Plan Of Treatment Medication Medication Name Sig Start Date Stop Date Notes Amoxicillin 875 MG 1 tablet Orally Twic e a day; Duration: 5 days 06/24/2025 Promethazine-DM 6.25-15 MG/5ML 5 mL as n eeded Orally every 6 hrs 06/24/2025 Benzonatate 200 MG 1 capsule as needed Orally Three times a day 06/24/2025 Next Appt Details Follow Up: prn, Reason: Progress Notes * LUCIANO MAYBERRY ANNDOB:[birth year] (65 yo F)Acc No.[id number]:06/24/2025 Progress Notes Patient: LUCIANO MCMAHAN ANN Provider: Tamiko Siegel M.D. :1960 A ge:65 Y S ex:Female Date:06/24/2025 Address:[address] [place] [address] [id number] Subjective: * Chief Complaints: * 1 . Sick. * HPI: E NT/respiratory: 65 year old female presents with c/o cough P t. states she has had a c ough for 3 days and aching. chest hurts but she thinks thats due to coughing Pt. went on a cruise last week and states that some of the people that went with her were sick as well. * ROS: D ERMATOLOGY: no R alex. n o H anna marie. G ASTROENTEROLOGY: no N ausea. n o V omiting. U ROLOGY: no D ifficulty urinating. n o B lood in urine. 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 Thomas, Osteopenia, 2010, Osteoporosis, 2017, Allergic Rhinitis, Sleep apnea. * Surgical History: B ilateral Tubal Ligation , Tonsillectomy , LT Foot , Umbilical Hernia Repair , Colonoscopy 2000,2008,2014,2019. * Hospitalization/Major Diagno stic Procedure: Marcelle arzate Polo- [facility] ER 10/04/2011. * Family History: [...] detector use: yes. Marital Status: . 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 Past smoking status: no. Alcohol: Type: , Frequency:socially ,Years: , Determination:, occasional. * Medications: T aking Xyzal Allergy 24HR 5 MG Tablet 1 tab(s) orally once a day (in the evening) , Taking Triamcinolone Acetonide 0.1 % Cream 1 application Externally Twice a day , Taking Scopolamine 1 MG/3DAYS Patch 72 Hour 1 patch to skin behind the ear as needed Transdermal , Taking Irbesartan 300 MG Tablet TAKE 1 TABLET BY MOUTH ONCE DAILY , Taking hydroCHLOROthiazide 12.5 MG Capsule 1 cap(s) Orally Once a day , Taking DULoxetine HCl 60 MG Capsule Delayed Release Particles 2 capsule Orally Once a day , Taking CPAP machine and supplies - - 6-16 as directed , Notes to Pharmacist: ANALI, Taking Nebivolol HCl 10 MG Tablet TAKE 1 TABLET BY MOUTH ONCE DAILY , Taking Reclast 5 MG/100ML Solution 5 mg intravenously once , Notes to Pharmacist: M81.0 Age Related Osteoporosis, Taking 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 Objective: * Vitals: W t: 181.0, Temp: 98.2, BP: 120/70, HR: 79, Nurse: SHANTELLE, Ht: 66, BMI:29.21. * Examination: E NT/Respiratory: General Appearance: N AD. E ars: a uditory canals normal bilaterally, tympanic membranes normal bilaterally. O ral cavity : e rythema without exudate on pharynx. H eart : R RR, normal S1 S2. L ungs: c lear to auscultation bilaterally. Assessment: * Assessment: 1. Ying schaeferalessio URI - J06.9 (Primary) Plan: * Treatment: Value Reference Range w bc 8.0 3.5 - 10 * l ym 22.9 15 - 50 * m id 5.7 2 - 15 * g ran 71.4 35 - 80 * r bc 4.22 3.5 - 5.5 * h gb 12.8 11.5 - 16.5 * h ct 39.1 35 - 55 * m cv 92.6 75 - 100 * m ch 30.5 25 - 35 * m chc 32.9 31 - 38 * p lat 270 100 - 400 * Diana Sheikh 06/24/2025 12:01: 24 PM EDT > Provider reviewed results while patient in office. ?LAB: Covid test (in house) (Collection Date & Time - 06/24/2025)* Value Reference Range R esult: Neg * Diana Sheikh 06/24/2025 12:12: 21 PM EDT > Provider reviewed results while patient in office. * Procedure Codes: G 2211 Complex e/[place] [address] CAPILLARY BLOOD DRAW, 98273 CBC WITH AUTO DIFF, 36590 COVID TEST IN HOUSE, Modifiers: QW * Follow Up: p rn * Images: Billing Information: * Visit Code: 20615 Office Visit, Est Pt., Level 3. * Procedure Codes: G2211 Complex e/[place]. [address] CAPILLARY BLOOD DRAW. 83546 CBC WITH AUTO DIFF. 26507 COVID TEST IN HOUSE. Modifiers: QW * Electronic signature of Kaitlin Siegel MD on 08/25/2025 at 10:46 AM EDT Sign off status: Pending * Provider: Tamiko Siegel M.D. Date: 0 06/24/2025 Generated for Jimyi ng/Fajonathang/eTransmitting on: 1 10:46 AM EDT History and Physical Notes * HPI (History of Present Illness) Category Sub-Category Detail Notes Category Not es ENT/respiratory cough Pt. states she h as had a cough for 3 days and aching. chest hurts but she thinks thats due to coughing Pt. went on a cruise last week and states that some of the people that went with her were sick as well Examination Category Sub-Category Detail Notes Category Not es ENT/Respiratory Oral cavity : erythema without exudate on pharynx Ears: auditory canals norm al bilaterally, tympanic membranes normal bilaterally Heart : RRR, normal S1 S2 Lungs: clear to auscultatio n bilaterally General Appearance: NAD
--- NOTE | 2025-08-25 10:39 | XR_ITS ---
FINAL REPORT TECHNIQUE: 5 views CLINICAL HISTORY: .pain FINDINGS: There is no acute fracture. Minimal anterior osteophytes are seen at L2-3 and L3-4. There is minimal spondylolisthesis of L5 on S1. Sclerosis is seen of the lower lumbar spine. 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 IMPRESSION: No acute process. Reviewed, Interpreted and Dictated by Sj Casiano MD Transcribed by Liana Amaya Authenticated and [facility]
--- NOTE | 2025-08-25 10:39 | XR_ITS ---
FINAL REPORT CLINICAL HISTORY: PAIN FINDINGS: LEFT HIP 2 views of the left hip are obtained. There is no acute fracture or dislocation. There is a sclerotic focus in the right sacral ala measuring 3.8 x 1.8 cm of uncertain significance but may be related to enostosis. Visualized joint spaces are normally aligned. There is no acute soft tissue abnormality. IMPRESSION: No acute bony abnormality. Reviewed, Interpreted and Dictated by Sj Casiano MD Transcribed by Liana Amaya Authenticated and [facility]
--- OUTSIDE RECORDS SUMMARY | 2025-08-25 10:46 | XMS_ITS | Clinical Summary ---
Author Organization [facility] Address [address] [place] [address] Care Team Providers Care Butt Maker Name Role Phone Abebe Siegel MD Primary Care Provider + [phone] Allergies No known active allergies Medications Thyroid [...] mouth Daily. Active neomycin-polymy jonathan-hydrocortis one (CORTISPORIN) 3.5-26337-7 otic solutionIndicat ions:Right ear pain Administer 3 drops into both ears 4 (Four) Times a Day. 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 02/24/2023 Overview (02/24/2023): Added automatically from request for surgery [id number] Family History Medical History Relation Name Comments [...] Description 12/16/2025 11:00 AM EST Office Visit [facility] [address] [facility] [address] [place] [address] Claus Haley MD [address] [facility] [address] [place] [id number] Health Maintenance Due Date Last Done Comments DXA SCAN 1958 MAMMOGRAM 1998 COLOGUARD 2003 COLON CANCER SCREENING 5 YEA R SIGMOIDOSCOPY 2003 COLONOSCOPY 2003 [address] CANCER SCREENING 2003 CT COLONOGRAPHY 2003 FECAL OCCULT BLOOD TEST 2003 FIT Testing (1 year) 2003 TDAP/TD VACCINES (2 - Tdap) 01/01/2007 01/01/1997 ZOSTER VACCINE (1 of 2) 02/07/2008 COVID-19 Vaccine (3 - Pfizer risk series) 02/20/2021 01/23/2021, 12/28/2020 ANNUAL WELLNESS VISIT 02/24/2023 HEPATITIS C SCREENING 02/24/2023 INFLUENZA VACCINE 05/30/2025 08/28/2020, , 08/22/2017 Pneumococcal Vaccine 50+ Completed 11/10/2023 Insurance [facility] Medicare [employer] PPO Care Teams Butt Maker Relationship Specialty Start Date End Date Abebe Siegel MD [address] [place] [facility] [address] [facility] [address] [place] [address] PCP - General Family Medicine 02/24/23
--- OUTSIDE RECORDS SUMMARY | 2025-08-25 10:47 | XMS_ITS | Patient Health Record ---
Author Organization [facility] Address [address] [place] [id number] Care Team Providers Care Group Exercise Instructor Name Role Phone Robbin Abebe Primary Care Provider [phone] Yola Caldwell Unavailable [phone] Allergies No Known Allergies Results Component Value Reference Range Notes Rapid Strep- Inhouse Reviewed date:10/01/2024 10:22:46 AM Interpretation:pos Performing Lab: Notes/Report: pos strep test pos P-TSH Reviewed date:10/02/2024 11:22:14 AM Interpretation:1.70 Performing Lab: Notes/Report: Test performed by [facility] [address] [place] [address] , [address], [place] [address] Dany Kam MD, Cleaning Custodian CLIA: [id number] TSH 1.70 0.43-5.25 mU/L Urinalysis - Inhouse Reviewed date:03/11/2025 09:29:24 AM Interpretation: Performing Lab: Notes/Report: Color/Clarity Yellow clear Leuk Neg Nitrite Neg Urobili 3.2 Protein Neg pH 6.0 Blood Neg Sp. Gr. 1.015 Ketone Neg Bili Neg Gluc Neg CBC Fingerstick (in house) Reviewed date:06/24/2025 04:08:24 [...] PM Interpretation: Performing Lab: Notes/Report: Result: Neg P-Vitamin D 25-Hydroxy Reviewed date:05/27/2025 09:20:07 AM Interpretation:49.4 Performing Lab: Notes/Report: Test performed by [facility] [address] [place] [address] , [address], [place] [address] Dany Kam MD, Cleaning Custodian CLIA: [id number] Vitamin D 25-Hydroxy 49.4 30.0-100.0 ng/mL Interpretation of Vitamin D 25 OH: < 20 ng/mL - Deficiency 20 - 29 ng/mL - Insufficiency 30 - 100 ng/mL - Sufficiency > 100 ng/mL - Super-therapeutic- toxicity may occur above this level. Clinical correlation required. P-Microalbumin/Creatinine, R andom Urine Sample Reviewed date:05/27/2025 09:20:07 AM Interpretation:Normal Performing Lab: Notes/Report: Test performed by [facility] [address] [place] [address] , [place] [address] Dany Kam MD, Cleaning Custodian CLIA: [id number] Albumin/Creatinine Ratio, Urine 3 0-30 ug/mg Microalbumin, Urine, Random 0.3 Creatinine, Urine 89.7 P-TSH Reviewed date:05/27/2025 09:20:07 AM Interpretation:Normal Performing Lab: Notes/Report: Test performed by [facility] [address] [place] [address] , [address], [place] [address] Dany Kam MD, Cleaning Custodian CLIA: [id number] TSH 3.31 0.43-5.25 mU/L P-Lipid Panel Reviewed date:05/27/2025 09:20:07 AM Interpretation:Chol 221, Chol/HDL 4.60, Non-HDL 173, LDL 146 Performing Lab: Notes/Report: Test performed by [facility] [address] [place] [address] , [place] [address] Dany Kam MD, Cleaning Custodian YOGI: [id number] Cholesterol 221 <200 mg/dL Triglycerides 135 <150 [...] Interpretation:0.85 Performing Lab: Notes/Report: Test performed by [facility] [address] [place] [address] , [address], [place] [address] Dany Kam MD, Cleaning Custodian CLIA: [id number] Thyroxine Free (free T4) 0.85 0.86-1.76 ng/dL P-Comprehensive Metabolic Pa makayla (CMP) Reviewed date:05/27/2025 09:20:07 AM Interpretation:glu 109 Performing Lab: Notes/Report: Test performed by [facility] [address] [place] [address] , [address], [place] [address] Dany Kam MD, Cleaning Custodian CLIA: [id number] Sodium 143 135-145 mmol/L Potassium 4.6 3.5-5.3 [...] 0.3 <0.2-1.2 mg/dL A/G Ratio 2.3 1.1-2.5 Medications Medication SIG (Take, Route, Frequency, Duration) Notes Start Date End Date Status hydroCHLOROthiazide 12.5 MG 1 cap(s) Orally Once a day; Duration: 90 days Active Triamcinolone Acetonide 0.1 % 1 application Externally Twice a day 06/11/2024 Active Nebivolol HCl 10 MG 1 tablet Orally Once a day; Duration: 90 days Active Xyzal Allergy 24HR 5 MG 1 tab(s) orally once a day (in the evening); Duration: 90 days Active Irbesartan 300 MG 1 tablet Orally Once a day; Duration: 90 days Active DULoxetine HCl 60 MG 2 capsule Orally Once a day; Duration: 90 days Active Scopolamine 1 MG/3DAYS 1 patch to skin behind the ear as needed Transdermal 10/14/2024 Active Reclast 5 MG/100ML 5 mg intravenously once M81.0 Age Related Osteoporosis 04/20/2021 Active CPAP machine and supplies - 6-16 as directed ANALI 04/10/2025 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 Thyroid 120 MG 1 tablet on an empty stomach Orally Once a day; Duration: 90 days 05/28/2025 Active Immunizations Vaccine Route Administration Date Status Comme nts COVID 19 Pfizer Unknown 12/26/2020 Administered COVID 19 Pfizer Unknown 01/23/2021 Administered DT, 7 YEARS OR OLDER Unknown 01/01/1997 Administered Fluzone Quad (6months&older) IM Intramuscular 08/19/2015 Administered Fluzone Quad (6months&older) IM Intramuscular 08/22/2017 Administered Fluzone Quad (6months&older) IM Intramuscular 07/31/2018 Administered Fluzone Quad (6months&older) IM Intramuscular 07/28/2019 Administered Fluzone Quad (6months&older) IM Intramuscular 08/28/2020 Administered Fluzone Quad (6months&older) IM Intramuscular 09/01/2022 Administered ppd ID Intradermal 06/23/2015 Administered ppd ID Intradermal 06/02/2020 Administered ppd ID Intradermal 12/15/2022 Administered ppd ID Intradermal 12/30/2024 Administered Prevnar (PCV20) IM Intramuscular 11/10/2023 Administered Tetanus Tdap-Adacel (over 7yrs) IM Intramuscular 05/26/2011 Administered Tetanus Tdap-Adacel (over 7yrs) IM Intramuscular 08/19/2015 Administered Problems Problem Type SNOMED Code ICD Code Onset Dates Problem Status W/U Status Risk Notes Problem Essential hypertension (45613134) HTN [Hypertension] (401.9) Active confirmed Problem Hypertension (52385258) HTN (hypertension) (I10) Active confirmed Problem Abnormal mammogram (541472292) Abnormal mammogram (R92.8) Active confirmed Problem Hypertriglyceridemia (577020084) Hypertriglyceridemia (E78.1) Active confirmed Problem Plantar wart of left foot (23104337281628153) Plantar wart of left foot (B07.0) Active confirmed Problem Plantar wart (79361353) Plantar wart (B07.0) Active confirmed Problem Mixed hyperlipidemia (903255424) Mixed hyperlipidemia (E78.2) Active confirmed Problem Adjustment disorder with mixed anxiety and depressed mood (275845823) Adjustment disorder with mixed anxiety and depressed mood (F43.23) Active confirmed Problem Hypothyroidism (61122922) Hypothyroidism (E03.9) Active confirmed Problem Obstructive sleep apnea syndrome (54009522) ANALI (obstructive sleep apnea) (G47.33) Active confirmed Problem Sciatica (08496297) Right sided sciatica (M54.31) Active confirmed Problem Mitral valve disorde r (88229203) MVP (mitral valve prolapse) (I34.1) Active confirmed Problem Adjustment disorder with depressed mood (59035129) Reaction, adjustment, with depressed mood, brief (F43.21) Active confirmed Problem Age related osteoporosis (85741149) Age related osteoporosis (M81.0) Active confirmed Problem Sprain of left wrist (71388642414564045) Sprain of left wrist, initial encounter (S63.502A) Active confirmed Problem Allergic rhinitis (70422483) Allergic rhinitis, unspecified seasonality, unspecified trigger (J30.9) Active confirmed Problem Sebaceous cyst of skin of breast (98523237) Sebaceous cyst of skin of left breast (N60.82) Active confirmed Vital Signs Heart Rate 67 /min 08/25/2025 Blood pressure diastolic 72 mm Hg 08/25/2025 Height 66 in 08/25/2025 Blood pressure systolic 122 mm Hg 08/25/2025 Weight 181.6 lbs 08/25/2025 BMI 29.31 kg/m2 08/25/2025 Encounters Encounter Location Date Provider Diagnosis [facility] [address] [place], [place] [id number] 10/01/2024 Yola Caldwell Hypothyroidism E03.9 and Strep pharyngitis J02.0 [facility] [address] [place], [place] [id number] 12/30/2024 Abebe Tarkio PPD screening test Z 11.1 [facility] [address] [place], [place] [id number] 01/01/2025 Abebe Tarkio [facility] [address] [place], [place] [id number] 02/19/2025 Abebe Tarkio Partial thickness bu rn of left lower extremity, initial encounter T24.202A and BMI 27.0-27.9,adult Z68.27 [facility] [address] [facility] [address] [place], [place] [id number] 03/10/2025 Yolalynne Fragaond Acute right-sided low back pain without sciatica M54.50 [facility] [address] [facility] [address] [place], [place] [id number] 04/10/2025 Abebe Tarkio Adjustment disorder with mixed anxiety and depressed mood F43.23 ; ANALI (obstructive sleep apnea) G47.33 and BMI 28.0-28.9,adult Z68.28 [facility] [address] [place], [place] [id number] 05/23/2025 Abebe Tarkio HTN (hypertension) I 10 ; Hypothyroidism E03.9 ; Age related osteoporosis M81.0 ; Hypertriglyceridemia E78.1 ; Mixed hyperlipidemia E78.2 ; Adjustment disorder with mixed anxiety and depressed mood F43.23 and BMI 29.0-29.9,adult Z68.29 [facility] [address] [facility] [address] [place], [place] [id number] 06/24/2025 Abebe Tarkio Acute URI J06.9 [facility] [address] [facility] [address] [place], [place] [id number] 08/25/2025 Abebe Tarkio Mixed hyperlipidemia E78.2 ; Left hip pain M25.552 and Hypothyroidism E03.9 [facility] [address] [facility] [address] [place], [place] [id number] 10/14/2024 Abebe Tarkio [facility] [address] [facility] [address] [place], [place] [id number] 04/11/2025 Abebe Tarkio ANALI (obstructive sle ep apnea) G47.33 [facility] [address] [facility] [address] [place], [place] [id number] 04/21/2025 Abebe Tarkio Screening for colon cancer Z12.11 and Screening for breast cancer Z12.39 [facility] [address] [facility] [address] [place], [place] [id number] 05/23/2025 Abebe Tarkio Age related osteopor osis M81.0 [facility] [address] [facility] [address] [place] [id number] 05/27/2025 Abebe Tarkio [facility] [address] [facility] [address] [place] [id number] 05/29/2025 Abebe Tarkio [facility] [address] [place] [id number] 06/03/2025 Abebeconchita ManzanaresTarkio Assessments Encounter Date Diagnosis (ICD Code) Assessment Notes Treatment Notes Treatment Clinical Notes Section Notes 10/01/2024 Strep pharyngitis (ICD-10 - J02.0) gargles [...] 05/23/2025 HTN (hypertension) (ICD-10 - I10) 05/23/2025 Age related osteopor osis (ICD-10 - M81.0) 06/24/2025 Acute URI (ICD-10 - J06.9) 08/25/2025 Left hip pain (ICD-1 0 - M25.552) 08/25/2025 Mixed hyperlipidemia (ICD-10 - E78.2) 05/23/2025 Hypothyroidism (ICD- 10 - E03.9) 05/23/2025 Age related osteopor osis (ICD-10 - M81.0) Patient needs Reclast 04/10/2025 BMI 28.0-28.9,adult (ICD-10 - Z68.28) 05/23/2025 Hypertriglyceridemia (ICD-10 - E78.1) 08/25/2025 Hypothyroidism (ICD- 10 - E03.9) 05/23/2025 Mixed hyperlipidemia (ICD-10 - E78.2) 05/23/2025 Adjustment disorder with mixed anxiety and depressed mood (ICD-10 - F43.23) 05/23/2025 BMI 29.0-29.9,adult (ICD-10 - Z68.29) Plan Of Treatment Pending Test Test Name Order Date X ray : Spine, lumbosacral 08/25/2025 X ray : Hip, left 08/25/2025 colonoscopy 04/21/2025 Mammogram 04/21/2025 P-Comprehensive Metabolic Panel (CMP) P-T4 Free (thyroxine) 08/25/2025 P-Lipid Panel 08/25/2025 P-Total T3 08/25/2025 P-TSH 08/25/2025 Insurance Providers Payer Name Payer Address Payer Phone Subscriber Number Group Number Insured Name Patient Relationship to Insured Coverage Start Date Coverage End Date [employer] MED[employer]ARE [address] [address] [place], [place] [id number] LUCIANO MAYBERRY Self - patient is the insured Medications Administered Medication Instructions Date of Administration Dosage Notes Bicillin LA 1,200,000 10/18/2012 Bicillin LA 1,200,000 09/02/2016 2 mL Dexamethasone 09/14/2005 1 mL Dexamethasone 05/17/2008 4 mg Medical (General) History Medical History History ICD Code Hypertension Hypothyroidism Mitral Valve Prolapse Endometriosis Diverticulosis 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
== END 2025-08-25 23:59 | disposition home or self-care (01) ==
LOC: RAD 10:35
PROVIDERS: PCP Family Medicine; Visit Provider Family Medicine
DX: M25.552 Pain in left hip (principal)
CPT/HCPCS: 72110; 73502